=== PATIENT | male | born 1975 | race Caucasian/White ===

== ENCOUNTER 2023-04-21 08:47 | Outpatient (AMB) | payer BC, SELFPAY ==
--- NOTE | 2023-04-21 08:57 | MHC.PC.OV ---
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 Note: Pt is here to est care Allergies pollen extracts [POLLEN] Allergy (Unknown, Unverified 04/21/23 09:18) UNKNOWN DUST Allergy (Unknown, Uncoded 04/21/23 09:18) UNKNOWN Medication List - Last Reconciled 04/21/23 by CHAD Richey amlodipine 5 mg PO DAILY amlodipine 2.5 mg PO DAILY folic acid 1 mg PO DAILY Tobacco use date assessed: 04/21/23 Dental Screening Dental Screen Date: 04/21/23 Did you have a dental visit in the last 12 months?: Yes Did you have a dental problem in the last 6 months where you did not have access to dental care?: No Was dental information given to patient?: Patient has dentist HPI HPI Comments History of Present Illness Details Patient is a 48-year-old male here to establish care. He recently transferred from [facility] and will be sending us his medical records. He states he has the past medical history significant for hypertension which is now controlled, and GERD. He has no surgical history. Patient has had 2 COVID vaccinations but has declined the new booster this year. His declined his influenza immunization. He is due for his 1st colonoscopy, will refer. Patient is a chief complaint of intermittent epigastric discomfort. Patient states it is often worse at night. He used to take omeprazole with good effect, he states he has not tried taking it several months. Denies nausea, vomiting, dizziness, chest pain, shortness a breath, constipation or diarrhea. Patient also states that he has occasional foot pain on the lateral aspect of his right foot. He denies any trauma to the area. He states that at work he is on his fevers entire shift, the pain comes and goes, but overall tends to be getting worse. No swelling or bruising. [facility] Medical History (Updated 04/21/23 @ 10:20 by CHAD Richey) Hypertension Family History Maternal Grandmother Diabetes Social History (Reviewed 04/21/23 @ 09:22 by RAQUEL Richey Housing: Apartment Patient Tobacco Use Status: Former Tobacco user e-Cigarette/Vaping Use: Currently Using (THC) service: Yes ([employer] ) Current occupational status: employed Current occupation: [employer] Current occupational exposures/hazards: No Cognitive needs: No Hearing needs: No Vision needs: No Questionnaire PHQ-9 Over the last 2 weeks, how often have you been bothered by any of the following problems? 1. Little interest or pleasure in doing things: several days 2. Feeling down, depressed, or hopeless: more than half the days 3. Trouble falling or staying asleep, or sleeping too much: not at all 4. Feeling tired or having little energy: several days 5. Poor appetite or overeating: not at all 6. Feeling bad about yourself - or that you are a failure or have let yourself or your family down: not at all 7. Trouble concentrating on things, such as reading the newspaper or watching television: not at all 8. Moving or speaking so slowly that other people could have noticed. Or the opposite - being so fidgety or restless that you have been moving around a lot more than usual: not at all 9. Thoughts that you would be better off or of hurting yourself in some way: not at all Total score: 4 Depression Screening Interpretation: Negative Depression Screening Done: Yes 54522 - PHQ-9 Billing: Yes Source: Developed by Drs. Merlin Cedeno, Elaine Carmona, Greg Eckert and colleagues, with an educational konrad from [employer]. Thrive Questionnaire Date Thrive assessed: 04/21/23 I am a: Patient What is your living situation today?: I have a steady place to live Within the past 12 months, did the food you bought not last and you didn't have the money to get more?: Never true Within the past 12 months, did you worry whether your food would run out before you got money to buy more?: Never true Do you have trouble paying for medicines?: No Do you have trouble getting transportation to medical appointments?: No Do you have trouble paying your heating and electricity bill?: No Do you have trouble taking care of your child, family member or friend?: No Do you have trouble with day-to-day activities such as bathing, preparing meals, shopping, managing finances, etc.?: No Are you currently unemployed and looking for a job?: No Are you interested in more education?: Yes AUDIT C Alcohol Use Questionnaire (AUDIT-C) 1. How often do you have a drink containing alcohol?: 2-4 times a month 2. How many drinks containing alcohol do you have on a typical day when you are drinking?: 1 or 2 3. How often do you have six or more drinks on one occasion?: Never Total Score: 2 JOSSELYN-7 AMB Questionnaire JOSSELYN-7 Date JOSSELYN - 7 assessed: 04/21/23 Feeling nervous, anxious, or on edge: 2 = More than half the days Not being able to stop or control worryin = More than half the days Worrying too much about different things: 2 = More than half the days Trouble relaxin = Not at all Being so restless that it is hard to sit still: 0 = Not at all Becoming easily annoyed or irritable: 1 = Several days Feeling afraid as if something awful might happen: 0 = Not at all Total JOSSELYN-7 score (0-4 normal; 5-9 mild; 10-14 moderate; 15-21 severe): 7 Source: Developed by Drs. Merlin Cedeno, Elaine Carmona, Greg Eckert and colleagues, with an educational konrad from [employer]. JOSSELYN-7 Assessment Billing JOSSELYN-7 Assessment Tool: JOSSELYN-7 Assessment 33456 Review of Systems Const Details: Constitutional : No Weight loss, No Fever, No Chills, No Fatigue, No Malaise ENT/Mouth : No sore throat, No Rhinorrhea. Eyes: No Eye Pain, No Swelling, No Redness Cardiovascular : No Chest Pain, No SOB, No Dyspnea on Exertion, No Orthopnea, No Edema, No Palpitations Respiratory : No Cough, No Sputum, No Wheezing Gastrointestinal : No Nausea, No Vomiting, No Diarrhea, No Constipation, Admits occasional epigastric discomfort,, No Hematochezia, No Melena Genitourinary : No Dysuria, No Urinary Frequency, No Hematuria, Musculoskeletal : No joint pain, No Myalgias, No Joint Swelling Skin : No Skin Lesions, No rash Neuro : No Weakness, No Numbness, No Dizziness, No Headache Psych : No Anxiety/Panic, No Depression Heme/Lymph: No Bruising, No Bleeding,No Lymphadenopathy Endocrine : No Polyuria, No Polydipsia All other systems reviewed and are negative Physical exam (Primary Care) Vital Signs: Last Vital Signs Pulse 84 04/21/23 08:59 BP 128/82 04/21/23 08:59 Pulse Ox 98 04/21/23 08:59 Oxygen Delivery Method Room Air 04/21/23 08:59 Care Plan Goal for BP management: Patient's vital signs reviewed are stable BMI result Body Mass Index 25.4 Tobacco/Smoking Status: Tobacco use Status Tobacco use date assessed 04/21/23 04/21/23 09:06 Patient Tobacco Use Status Former Tobacco user 04/21/23 09:06 e-Cigarette/Vaping Use Currently Using (THC) 04/21/23 09:06 Depression Screening Interpretation: Negative Const Other: Appearance: Alert.? Oriented X3.? No acute distress.? Head: Normocephalic, atraumatic, no step-offs or deformities Eyes: Pupils equal, round and reactive to light.? ENT: Pharynx normal. TM intact and pearly dill. Cerumen in right ear. ? Neck: Normal inspection.? Neck supple.? CVS: Normal heart rate and rhythm.? Pulses normal.? Respiratory: No respiratory distress.? Breath sounds normal.? Abdomen: Soft and nontender.? Skin: Skin warm and dry.? Normal skin color.? Normal skin turgor.? Neuro: Oriented X 3.? No motor deficit.? No sensory deficit. CN 2-12 intact Results Reviewed Results Reviewed: Will call patient with blood test results. Assessment and Plan Assessment & Plan (1) GERD (gastroesophageal reflux disease): Comment: Will prescribe omeprazole. Patient has been instructed on how to take this medication properly in the common side effects. Code(s): K21.9 - Gastro-esophageal reflux disease without esophagitis Qualifiers: Esophagitis presence: esophagitis presence not specified Qualified Code(s): K21.9 - Gastro-esophageal reflux disease without esophagitis (2) Right foot pain: Comment: Will order x-ray of right foot. Patient has been instructed to use insert for his steel toe boots that he wears at work to see if it gives relief. Will follow-up with x-ray results Code(s): M79.671 - Pain in right foot Plan: Take your medications as prescribed. If you were prescribed antibiotics today, it is important that you take your medication to their entirety, do not skip any doses, do not finish them early. Follow-up with your primary care provider this week. Return to the emergency department with new or worsening symptoms. Such as fevers, chills, chest pain, shortness of breath, nausea, vomiting, dizziness, headache, vision changes, lethargy In case of emergency call 911 Plan Patient will follow-up for full physical in 4 months. Orders: Orders Lipid Panel Today E78.5 - Hyperlipidemia, unspecified PSA,Total (Free>4and<10) Today Z12.5 - Encounter for screening for malignant neoplasm of prostate XR foot RT 2V Today M79.671 - Pain in right foot Complete Blood Count Auto Diff Today Z13.0 - Encounter for screening for diseases of the blood and blood-forming organs and certain disorders involving the immune mechanism Comprehensive Met. Panel Today Z91.89 - Other specified personal risk factors, not elsewhere classified TSH reflex Free T4 Today E03.9 - Hypothyroidism, unspecified UA CC w/rflx Micro + Cult Today E86.0 - Dehydration Vitamin D 25-OH (D2 and D3) Today Z13.21 - Encounter for screening for nutritional disorder Medications: New omeprazole 20 mg PO DAILY 60 caps 0RF Coding Level of Care Code New Pt Level 4 (97356) Diagnoses Gastroesophageal reflux disease, unspecified whether esophagitis present K21.9 Esophagitis presence: esophagitis presence not specified Right foot pain M79.671 Additional Codes JOSSELYN-7 Assessment Billing - JOSSELYN-7 Assessment Tool: JOSSELYN-7 Assessment [id number] ([id number]) Time Spent (min) 45
[2023-04-21 08:59] VITALS: BP 128/82; PULSE 84; O2SAT 98; BMI 25.4
== END 2023-04-21 09:54 | disposition home or self-care (01) ==
PROVIDERS: Visit Provider Nurse Practitioner Primary Care
DX: K21.9 Gastro-esophageal reflux disease without esophagitis (principal); M79.671 Pain in right foot
CPT/HCPCS: 99204

== ENCOUNTER 2023-04-21 09:56 | Outpatient (REF) | payer SELFPAY ==
[2023-04-21 13:23] LABS: MANUAL DIFF FLAG NO
[2023-04-21 13:34] LABS: Basophils Percent Auto 0.6 % (0-2); Eosinophils Absolute Auto 0.1 X10*3/uL (0.0-0.4); Eosinophils Percent Auto 1.2 % (0-4); Hematocrit 43.9 % (42.0-52.0); Hemoglobin 15.1 g/dl (14.0-18.0); Imm Gran Abs Auto 0.01 X10*3/uL (0.00-0.03); Imm Gran Pct Auto 0.2 % (0.0-0.4); Lymphocytes Absolute Auto 1.5 X10*3/uL (1.2-4.9); Lymphocytes Percent Auto 29.5 % (20-40); Mean Corpuscular HGB Conc 34.4 g/dl (31.0-36.0); Mean Corpuscular Hemoglobin 31.5 pg (27.0-33.0); Mean Corpuscular Volume 91.6 fL (80.0-98.0); Mean Platelet Volume 9.8 fL (9.4-12.4); Monocytes Absolute Auto 0.5 X10*3/uL (0.1-1.2); Neutrophils Percent Auto 58.5 % (45-73); Platelet Count 256 X10*3/uL (160-400); Red Blood Count 4.79 X10*6/uL (4.60-5.80); Red Cell Distribution Width 12.5 % (11.0-16.0); White Blood Count 5.2 X10*3/uL (4.8-10.8)
[2023-04-21 13:57] LABS: Appearance Urine Clear; Color Urine Yellow; Glucose Urine UA Negative (Negative); Leukocyte Esterase Urine Negative (Negative); Nitrite Urine Negative (Negative); PH 5.5 (5.0-9.0); Urine Blood Negative (Negative); Urine Ketones Trace mg/dL (Negative); Urine Protein Negative (Neg-Trace)
[2023-04-21 14:02] LABS: Alanine Aminotransferase 34 U/L (0-40); Albumin Level 4.8 g/dL (3.5-5.0); Alkaline Phosphatase 44 U/L (39-117); Anion Gap 13 (12-20); Aspartate Amino Transferase 27 U/L (5-37); Bilirubin Total 2.5 mg/dL (0.0-1.0); Blood Urea Nitrogen 14 mg/dL (9-16); Calcium 9.7 mg/dL (8.4-10.2); Carbon Dioxide 24 mmol/L (22-29); Chloride 107 mmol/L (96-108); Cholesterol 191 mg/dL (<200); Estimated Glomerular Filt Rate > 60; Glucose Random 110 mg/dL (60-115); HDL Cholesterol 49 mg/dL (>40); LDL Cholesterol Calculated 125 mg/dL (<100); Potassium 3.3 mmol/L (3.3-5.1); Sodium 141 mmol/L (135-145); Total Protein 8.2 g/dL (6.5-8.0); Triglycerides 85 mg/dL (<150)
[2023-04-21 14:25] LABS: TSH reflex Free T4 0.99 uIU/mL (0.32-4.0)
[2023-04-25 16:28] LABS: Vitamin D 25-OH, D2 <4 ng/mL; Vitamin D 25-OH, D3 40 ng/mL; Vitamin D 25-OH, Total 40 ng/mL (30-100)
== END 2023-04-21 09:57 | disposition home or self-care (01) ==
LOC: HO.HMGCLDS 09:56
PROVIDERS: PCP Nurse Practitioner Primary Care; Visit Provider Nurse Practitioner Primary Care
DX: Z13.0 Encounter for screening for diseases of the blood and blood-forming organs and certain disorders involving the immune mechanism (principal); Z12.5 Encounter for screening for malignant neoplasm of prostate; Z13.21 Encounter for screening for nutritional disorder; Z91.89 Other specified personal risk factors, not elsewhere classified; E03.9 Hypothyroidism, unspecified; E86.0 Dehydration; E78.5 Hyperlipidemia, unspecified
CPT/HCPCS: 36415; 80053; 80061; 81003; 82306; 84153; 84443; 85025

== ENCOUNTER 2023-06-08 07:39 | Outpatient (AMB) | payer SELFPAY ==
--- NOTE | 2023-06-08 07:51 | MHC.OFFVIS ---
Intake Vital Signs 06/08/23 07:52 Height 6 ft Weight 189 lb 9.561 oz BMI 25.7 BP 145/96 H Blood Pressure Location Lt brachial Position Sitting Pulse 86 Intake Visit Reasons: Colonoscopy Screening Intake Note: Wendie presents in the office as a colonoscopy screening. CC: He states that he is not having any concerns! Just due for a colonoscopy. 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 He is referred by Mor Alegre of [facility] primary care. PMX Hypertension GERD Right foot pain Allergic rhinitis * SURGICAL HISTORY Pt denies * ALLERGIES: NKDA * [facility] LABS: Laboratory Tests 04/21/23 10:00 WBC 5.2 Hgb 15.1 Hct 43.9 Plt Count 256 Estimated GFR > 60 Total Bilirubin 2.5 H AST 27 ALT 34 Alkaline Phosphata se 44 TSH 0.99 TODAY'S VISIT This is his first colonoscopy. His GERD is well controlled if he gets his medicines, apparently there were some kind of miscommunication with his primary care provider. He denies any bowel problems. He is naive to anesthesia and sedation. He denies any cardiac or respiratory problems. No ID problems NO FHX of crc or polyps. [facility] Medical History Hypertension Family History Maternal Grandmother Diabetes Social History Housing: Apartment Patient Tobacco Use Status: Former Tobacco user e-Cigarette/Vaping Use: Currently Using (THC) service: Yes ([employer] ) Current occupational status: employed Current occupation: [employer] Current occupational exposures/hazards: No Cognitive needs: No Hearing needs: No Vision needs: No Review of Systems Const Denies fatigue, Denies fever(s), Denies night sweats, Denies poor appetite and Denies weight loss ENT Reports Normal hearing present, Denies dental pain, Denies dysphagia, Denies hearing loss, Denies mouth pain, Denies odynophagia, Denies throat swelling, Denies tongue swelling and Reports other (Dentition adequate) Card Reports no additional complaints Resp Reports no additional complaints GI Details: Denies abdominal pain, Denies melena, Denies bloating, Denies hematochezia, Denies constipation, Denies GI cramping, Denies dysphagia, Denies excessive flatus, Denies early satiety, Denies heartburn, Denies diarrhea, Denies nausea, Denies odynophagia, Denies vomiting and Denies hematemesis Skin/Breast Denies pruritus, Denies lesions, Denies rash and Denies jaundice Neuro Reports Normal hearing present and Denies Abnormal speech present Endo Denies fatigue Aller/Immun Denies throat swelling and Denies tongue swelling Physical Exam Vital Signs: Last Vital Signs Pulse 86 06/08/23 07:52 BP 145/96 H 06/08/23 07:52 BMI result Body Mass Index 25.7 Const General: cooperative, no acute distress, well developed and well groomed Nutritional Appearance: average body habitus and well nourished Orientation/consciousness: oriented to person, oriented to place and oriented to time Limitations: No language barrier HEENT Head: Yes normocephalic and Yes atraumatic Eyes General: appearance normal, both eyes and all related structures Pupils: Equal, round and reactive pupils present Neck Neck: Yes normal visual inspection and Yes no lymphadenopathy Thyroid: Thyroid normal Resp Effort & Inspection: normal respiratory effort and able to speak in complete sentences Auscultation: clear to auscultation bilaterally Cardio Rate: regular rate Rhythm: regular rhythm Heart sounds: Normal, physiologic split S2 sound present Peripheral pulses: radial pulses present and posterior tibial pulses present GI Inspection: No distended and No Abdominal panniculus present Palpation (GI): Soft to palpation, nontender, no guarding, not rigid and No hepatosplenomegaly present Percussion: Yes normal to percussion Auscultation: normal bowel sounds Rectal Exam - Male: Yes deferred Skin General skin exam: no rashes or lesions noted, turgor normal, skin not dry, no jaundice, No spider nevi and no striae Rashes: no rashes Nails: normal Neuro General: oriented to person, oriented to place and oriented to time Cranial nerves: Yes Equal, round and reactive pupils present and Yes Normal hearing present Speech: No Abnormal speech present Extrem General: Yes normal to inspection, No clubbing, No cyanosis and No edema Psych Appearance: grossly normal and well kempt Mental Status: mental status grossly normal Speech and movement: Normal speech and movement present Affect: normal affect Attitude: cooperative Thought process: Normal thought process present and not confabulating Thought content: Normal thought content present Insight: Fair insight present (Psych) Judgement: Fair judgement present (Psych) Assessment & Plan Assessment & Plan (1) Pre-op examination: Code(s): Z01.818 - Encounter for other preprocedural examination Plan This is his first colonoscopy. His GERD is well controlled if he gets his medicines, apparently there were some kind of miscommunication with his primary care provider. He denies any bowel problems. He is naive to anesthesia and sedation. He denies any cardiac or respiratory problems. No ID problems NO FHX of crc or polyps. Orders: Orders Colonoscopy - GI Use Only Today Z01.818 - Encounter for other preprocedural examination Medications: New peg 3350-electrolytes 236-22.74-6.74 -5.86 gram (Golytely) until fecal effluent is clear; do not exceed a total volume of 2,000 mL 240 mL PO Q10M 1 day 4,000 mL 0RF Z12.11 - Encounter for screening for malignant neoplasm of colon bisacodyl (Dulcolax (bisacodyl)) 10 mg (2 x 5 mg) PO BEDTIME 2 days 4 tabs 0RF Refilled omeprazole 20 mg PO DAILY 60 caps 6RF Coding Level of Care Code New Pt Level 3 (23367) Diagnoses Pre-op examination Z01.818
[2023-06-08 07:52] VITALS: BP 145/96; PULSE 86; BMI 25.7
== END 2023-06-08 08:34 | disposition home or self-care (01) ==
PROVIDERS: PCP Nurse Practitioner Primary Care; Visit Provider Nurse Practitioner
DX: Z01.818 Encounter for other preprocedural examination (principal); Z12.11 Encounter for screening for malignant neoplasm of colon
CPT/HCPCS: S0285

== ENCOUNTER → 2023-06-08 07:39 | Outpatient (BNVA) | payer SELFPAY | PROVIDERS: PCP Nurse Practitioner Primary Care; Visit Provider Nurse Practitioner ==

== ENCOUNTER 2023-08-23 08:45 | Outpatient (AMB) | payer BC, SELFPAY ==
[2023-08-23 08:49] VITALS: BP 136/92; PULSE 85; O2SAT 98; BMI 25.0
--- NOTE | 2023-08-23 08:49 | A.OFFPC_ITS ---
Vital Signs 08/23/23 08:49 Height 6 ft Weight 184 lb BMI 25.0 BP 136/92 H Blood Pressure Location Rt brachial Position Sitting Pulse 85 Pulse Source Pulse Oximeter Pulse Oximetry (%) 98 Oxygen Delivery Method Room Air Intake Visit Reasons: 4 month fu Intake Note: Pt is here today for his 4 Month follow up Allergies pollen extracts [POLLEN] Allergy (Unknown, Verified 08/23/23 09:08) UNKNOWN DUST Allergy (Unknown, Uncoded 08/23/23 09:08) UNKNOWN Medication List - Last Reconciled 08/23/23 by CHAD Richey amlodipine 10 mg PO DAILY folic acid 1 mg PO DAILY omeprazole 20 mg PO DAILY Tobacco use date assessed: 08/23/23 Dental Screening Dental Screen Date: 08/23/23 Did you have a dental visit in the last 12 months?: Yes Did you have a dental problem in the last 6 months where you did not have access to dental care?: No Was dental information given to patient?: Patient has dentist HPI HPI Comments History of Present Illness Details Patient is a 48-year-old male in today for follow-up with hypertension. Had been taking 7.5 mg amlodipine at home, his at home records indicate that he is still mildly hypertensive, with value similar to today's appointment. Patient will be titrated up to 10 mg p.o. of amlodipine. Patient denies episodes of chest pain, dizziness, numbness, shortness a breath, and leg edema. Patient does have complaint of intermittent right upper quadrant pain. States that the pain is dull and can come and go regardless of food intake. Denies diarrhea or constipation. Patient states he has had this problem for the past several years. Reports 1-2 beers per week. Patient's CT scan from previous provider demonstrated diffuse steatosis. Patient educated on proper diet. [facility] refer [facility] Medical History (Updated 08/23/23 @ 09:41 by CHAD Richey) Hypertension Family History Maternal Grandmother Diabetes Social History Housing: Apartment Patient Tobacco Use Status: Former Tobacco user e-Cigarette/Vaping Use: Currently Using (THC) service: Yes ([employer] ) Current occupational status: employed Current occupation: [employer] Current occupational exposures/hazards: No Cognitive needs: No Hearing needs: No Vision needs: No Questionnaire Thrive Questionnaire Date Thrive assessed: 04/21/23 AUDIT C Alcohol Use Questionnaire (AUDIT-C) 1. How often do you have a drink containing alcohol?: 2-4 times a month 2. How many drinks containing alcohol do you have on a typical day when you are drinking?: 1 or 2 3. How often do you have six or more drinks on one occasion?: Never Total Score: 2 Score Reviewed/Action Taken: Yes JOSSELYN-7 AMB Questionnaire JOSSELYN-7 Date JOSSELYN - 7 assessed: 04/21/23 Source: Developed by Drs. Merlin Cedeno, Elaine Carmona, Greg Eckert and colleagues, with an educational konrad from [employer]. Review of Systems Const All systems reviewed & are unremarkable except as noted in HPI and below Physical exam (Primary Care) Vital Signs: Last Vital Signs Pulse 85 08/23/23 08:49 BP 136/92 H 08/23/23 08:49 Pulse Ox 98 08/23/23 08:49 Oxygen Delivery Method Room Air 08/23/23 08:49 Care Plan Goal for BP management: Patient titrated up to 10 mg p.o. of amlodipine. Next steps: Take records at home. BMI result Body Mass Index 25.0 Tobacco/Smoking Status: Tobacco use Status Tobacco use date assessed 08/23/23 08/23/23 08:59 Patient Tobacco Use Status Former Tobacco user 08/23/23 08:59 e-Cigarette/Vaping Use Currently Using (THC) 08/23/23 08:59 Thrive Assessment: Date of Thrive Assessment Date Thrive assessed 04/21/23 08/23/23 08:59 Const Other: Appearance: Alert.? Oriented X3.? No acute distress.? Head: Normocephalic, atraumatic. CVS: Normal heart rate and rhythm.? Pulses normal.? Respiratory: No respiratory distress.? Breath sounds normal.? Abdomen: Soft and nontender.? Skin: Skin warm and dry. Small red vesicles to lateral aspect of mid foot bilaterally. No scaling or discharge. Extremities: No lower extremity edema.? Neuro: Oriented X 3.? Assessment and Plan Assessment & Plan (1) RUQ pain: Comment: Patient had prior CT scan to [facility] [address] which demonstrated diffuse hepatic steatosis. Will refer to GI. Code(s): R10.11 - Right upper quadrant pain (2) Tinea pedis: Comment: Will prescribe nystatin cream to be taken as directed. Patient has been educated to keep his feet dry, wear appropriate footwear and sock where Code(s): B35.3 - Tinea pedis Qualifiers: Laterality: bilateral Qualified Code(s): B35.3 - Tinea pedis (3) Hypertension: Comment: Amlodipine titrated up to 10 mg p.o. daily. Code(s): I10 - Essential (primary) hypertension Qualifiers: Hypertension type: primary hypertension Qualified Code(s): I10 - Essential (primary) hypertension Plan: Take your medications as prescribed. If you were prescribed antibiotics today, it is important that you take your medication to their entirety, do not Follow-up with your primary care provider this week. Return to the emergency department with new or worsening symptoms. Such as fevers, chills, chest pain, shortness of breath, nausea, vomiting, dizziness, headache, vision changes, lethargy In case of emergency call 911 Plan Patient will follow-up physical exam in 2 months Orders: Orders Comprehensive Met. Panel Today Z91.89 - Other specified personal risk factors, not elsewhere classified Complete Blood Count Auto Diff Today Z13.0 - Encounter for screening for diseases of the blood and blood-forming organs and certain disorders involving the immune mechanism Referrals Gastroenterology Referral R10.11 - Right upper quadrant pain Medications: New amlodipine 10 mg PO DAILY 90 tabs 0RF nystatin 1 appl topical DAILY 15 grams 0RF Discontinued amlodipine Discontinued Reason: Doctor's Order 5 mg PO DAILY 90 tabs 1RF Coding Level of Care Code Est Pt Level 4 (61880) Diagnoses RUQ pain R10.11 Tinea pedis of both feet B35.3 Laterality: bilateral Primary hypertension I10 Hypertension type: primary hypertension Time Spent (min) 32
== END 2023-08-23 09:29 | disposition home or self-care (01) ==
PROVIDERS: Visit Provider Nurse Practitioner Primary Care
DX: R10.11 Right upper quadrant pain (principal); B35.3 Tinea pedis; I10 Essential (primary) hypertension
CPT/HCPCS: 99214

== ENCOUNTER 2023-09-03 13:52 | Outpatient (REF) | payer BC, SELFPAY ==
--- NOTE | ~2023-09-03 | XR_ITS ---
EXAMINATION: XR FOOT, RIGHT CLINICAL INFORMATION: Pain in right foot. COMPARISON: None available. TECHNIQUE: AP, lateral, and oblique views of the right foot. FINDINGS: Mild spurring along the dorsal aspect of the calcaneus. Moderate degenerative changes with joint space narrowing and hypertrophic change in the first metatarsophalangeal joint. Mild degenerative changes in the first tarsometatarsal joint with hypertrophic change. XR/XR foot RT min 3V IMPRESSION: 1. Moderate degenerative changes first metatarsophalangeal joint. 2. Mild degenerative changes first tarsometatarsal joint. 3. Mild spurring along the dorsal aspect of the calcaneus. 4. Recommend follow-up imaging in 10-14 days if fracture is suspected.
[2023-09-03 16:01] LABS: MANUAL DIFF FLAG NO
[2023-09-03 16:30] LABS: Basophils Percent Auto 0.6 % (0-2); Eosinophils Absolute Auto 0.1 X10*3/uL (0.0-0.4); Eosinophils Percent Auto 1.3 % (0-4); Hematocrit 45.1 % (42.0-52.0); Imm Gran Abs Auto 0.01 X10*3/uL (0.00-0.03); Imm Gran Pct Auto 0.2 % (0.0-0.4); Lymphocytes Absolute Auto 1.6 X10*3/uL (1.2-4.9); Lymphocytes Percent Auto 32.9 % (20-40); Mean Corpuscular HGB Conc 35.5 g/dl (31.0-36.0); Mean Corpuscular Hemoglobin 32.5 pg (27.0-33.0); Mean Corpuscular Volume 91.5 fL (80.0-98.0); Mean Platelet Volume 9.6 fL (9.4-12.4); Monocytes Absolute Auto 0.5 X10*3/uL (0.1-1.2); Monocytes Percent Auto 9.8 % (2-11); Neutrophils Absolute Auto 2.6 x10*3/uL (2.0-8.3); Neutrophils Percent Auto 55.2 % (45-73); Platelet Count 263 X10*3/uL (160-400); Red Blood Count 4.93 X10*6/uL (4.60-5.80); Red Cell Distribution Width 12.4 % (11.0-16.0); White Blood Count 4.7 X10*3/uL (4.8-10.8)
[2023-09-03 16:38] LABS: Alanine Aminotransferase 31 U/L (0-40); Albumin Level 4.8 g/dL (3.5-5.0); Alkaline Phosphatase 44 U/L (39-117); Anion Gap 11 (12-20); Aspartate Amino Transferase 27 U/L (5-37); Bilirubin Total 2.2 mg/dL (0.0-1.0); Blood Urea Nitrogen 10 mg/dL (9-16); Calcium 9.7 mg/dL (8.4-10.2); Carbon Dioxide 26 mmol/L (22-29); Chloride 106 mmol/L (96-108); Estimated Glomerular Filt Rate > 60; Glucose Random 112 mg/dL (60-115); Potassium 3.7 mmol/L (3.3-5.1); Sodium 139 mmol/L (135-145); Total Protein 8.3 g/dL (6.5-8.0)
== END 2023-09-03 13:53 | disposition home or self-care (01) ==
LOC: HO.HMGCX 13:52
PROVIDERS: PCP Nurse Practitioner Primary Care; Visit Provider Nurse Practitioner Primary Care
DX: Z13.0 Encounter for screening for diseases of the blood and blood-forming organs and certain disorders involving the immune mechanism (principal); Z91.89 Other specified personal risk factors, not elsewhere classified
CPT/HCPCS: 36415; 73630; 80053; 85025

== ENCOUNTER 2023-09-14 08:04 | Day surgery (SDC) | payer BC, SELFPAY ==
--- NOTE | 2023-09-10 14:39 | P.CONAN_ITS ---
Documented by User: Arleen Bowen NP 09/10/23 14:40 HPI - Anesthesia Eval Consult details Narrative: 48yo M for Colonoscopy PMFSH Active Problems Active Problems: All Active Problems Hypertension (Acute) Tinea pedis (Acute) RUQ pain (Acute) Pre-op examination (Acute) Right foot pain (Acute) GERD (gastroesophageal reflux disease) (Acute) Past Medical History Medical History Hypertension Family History Family History Maternal Grandmother Diabetes Social History Social History Housing: Apartment Patient Tobacco Use Status: Former Tobacco user e-Cigarette/Vaping Use: Currently Using (THC) Use of substances other than those prescribed or required for medical reasons: Yes Substance Use Type Other:: THC vape form daily Substance Use Frequency: Daily Are you DNR?: No Advance Directives: No Advance Directives Information Provided: Yes service: Yes ([employer] ) Current occupational status: employed Current occupation: [employer] Current occupational exposures/hazards: No Cognitive needs: No Hearing needs: No Vision needs: No Meds Allergies Allergy/AdvReac Type Severity Reaction Status Date / Time pollen extracts [POLLEN] Allergy Unknown UNKNOWN Verified 09/14/23 09:30 ibuprofen AdvReac Itching Verified 09/14/23 09:31 DUST Allergy Unknown UNKNOWN Uncoded 09/14/23 09:30 Home Medications ?Medication ?Instructions ?Recorded ?Confirmed ?Last Taken ?Type folic acid 1 mg tablet 1 mg PO DAILY 04/21/23 09/14/23 09/14/23 06:30 History Assessment and Plan Assessment Anesthesia Assessment: Chart Reviewed Documented by User: Bree Duke MD 09/14/23 10:00 PMFSH Past Medical History Medical History Hypertension Family History Family History Maternal Grandmother Diabetes Surgical History History of Problems with Anesthesia: No Social History Social History Housing: Apartment Patient Tobacco Use Status: Former Tobacco user e-Cigarette/Vaping Use: Currently Using (THC) Use of substances other than those prescribed or required for medical reasons: Yes Substance Use Type Other:: THC vape form daily Substance Use Frequency: Daily Are you DNR?: No Advance Directives: No Advance Directives Information Provided: Yes service: Yes ([employer] ) Current occupational status: employed Current occupation: [employer] Current occupational exposures/hazards: No Cognitive needs: No Hearing needs: No Vision needs: No Meds Allergies Allergy/AdvReac Type Severity Reaction Status Date / Time pollen extracts [POLLEN] Allergy Unknown UNKNOWN Verified 09/14/23 09:30 ibuprofen AdvReac Itching Verified 09/14/23 09:31 DUST Allergy Unknown UNKNOWN Uncoded 09/14/23 09:30 Home Medications ?Medication ?Instructions ?Recorded ?Confirmed ?Last Taken ?Type folic acid 1 mg tablet 1 mg PO DAILY 04/21/23 09/14/23 09/14/23 06:30 History Exam Airway Mallampati Class: II TM Dist: >3cm Neck ROM: Full Loose/Missing/Broken Teeth: No Heart: RRR Lungs: CTA Assessment and Plan Assessment Anesthesia Assessment: Anesthesia Plan Discussed Final Anesthetic Review History of Problems with Anesthesia: No NPO: Yes ASA Class: II Final Preanesthetic Review: Meds/Allgs Chart Reviewed, Consent Obtained/Reviewed and Anes Risks/Benef Reviewed Patient Risk: Low Procedure Risk: Low Anesthetic Plan Anesthetic Plan: MAC: Disposition: Standard PACU
[2023-09-14 09:19] VITALS: BMI 24.3
--- NOTE | 2023-09-14 09:20 | MHC.SHP ---
Pre-Procedural Eval Section A - 24 Hr Update-Section A only Date of Service: 09/14/23 Section B - Complete if H&P > 30 days Chief Complaint: Encounter for screening for malignant neoplasm of Details of Present Illness: PMX Hypertension GERD Right foot pain Allergic rhinitis History of Previous Operations: No relevant previous surgery Allergies: Allergies Allergy/AdvReac Type Severity Reaction Status Date / Time pollen extracts [POLLEN] Allergy Unknown UNKNOWN Verified 08/23/23 09:08 DUST Allergy Unknown UNKNOWN Uncoded 08/23/23 09:08 Review of Systems Review of Systems Comment: 10 point ROS negative Exam Exam Comment: Gen appear: No acute distress HEENT: no icterus Chest: No overt resp distress Abd: soft, nontender, nondistended Psych: Stable affect, answering questions appropriately Neuro: A/Ox3 noted to move all extremities spontaneously Ext: no peripheral edema Plan Diagnosis/Plan: Unchanged I have reviewed the history and physical and performed a pertinent physical examination on my patient. No changes have occurred unless specified. Time Spent With Patient Time: Total time managing care of this patient today ____ minutes.
[2023-09-14 09:34] VITALS: BP 122/89; PULSE 80; RESP 16; TEMP 36.9; O2SAT 98
[2023-09-14] MEDS: Lactated Ringers 1,000 ML 100 ML IVCONT (09:43)
--- NOTE | 2023-09-14 09:56 | P.OPN-COLO_ITS ---
Colonoscopy Operative Note Operative Note Date of Service: 09/14/23 Narrative: Procedure: Colonoscopy Indication: Screening Endoscopist: Eliza Villaseñor MD Anesthesia Provider: Dr Taylor Duke Anesthesia type: MAC Instrument: Olympus [id number]-[id number] Consent: Indication, risks vs benefits, and alternatives were discussed with the patient who gave written informed consent to proceed. EKG, pulse, pulse oximetry and blood pressure were monitored throughout the procedure. Please see anesthesia flowsheet. Procedure: The patient was brought to the procedure room and placed in the left lateral decubitus position. IV medications were administered by the anesthesia provider in attendance. A digital rectal exam was performed which was normal. A distal attachment cap was affixed to the tip of the colonoscope which was then inserted through the anus and advanced through the colon to the cecum at 75 cm, and terminal ileum. Appendiceal orifice and ileocecal valve were identified. Mucosa was carefully examined under high definition white light as the instrument was slowly withdrawn in a retrograde panoramic fashion. Retroflexion was performed in ascending colon and rectum. The procedure was not difficult. There were no immediate obvious complications. The quality of the prep was BBPS: 2+2+3 = adequate Withdrawal time 6 minutes. Limitations: No limitations. Findings: Mucosa: Normal to cecum and terminal ileum. Protruding lesions: * Small internal hemorrhoids without stigmata of recent bleeding. Impression: 1. Normal colon and terminal ileum mucosa 2. Small internal hemorrhoids Recommendations: - repeat colonoscopy for asymptomatic colorectal cancer screening recommended in 10 years
[2023-09-14 10:24] VITALS: BP 103/67; PULSE 69; RESP 18; TEMP 36.5; O2SAT 98
[2023-09-14 10:39] VITALS: BP 125/85; PULSE 72; RESP 18; TEMP 36.5; O2SAT 100
== END 2023-09-14 11:09 | disposition home or self-care (01) ==
PROVIDERS: PCP Nurse Practitioner Primary Care; Visit Provider Internal Medicine
PROC: 0DJD8ZZ Inspection of Lower Intestinal Tract, Via Natural or Artificial Opening Endoscopic (ICD-10-PCS; CPT 45378; principal; 2023-09-14 09:40)
DX: Z12.11 Encounter for screening for malignant neoplasm of colon (principal); K64.8 Other hemorrhoids; I10 Essential (primary) hypertension
CPT/HCPCS: 45378; J2704

== ENCOUNTER → 2023-09-14 08:04 | Outpatient (BNV) | payer BC, SELFPAY | PROVIDERS: PCP Nurse Practitioner Primary Care; Visit Provider Internal Medicine | DX: Z12.11 Encounter for screening for malignant neoplasm of colon (principal); K64.0 First degree hemorrhoids | CPT/HCPCS: 45378 ==

== ENCOUNTER 2023-09-28 08:01 | Outpatient (AMB) | payer BC, SELFPAY ==
[2023-09-28 08:09] VITALS: BP 141/89; PULSE 68; BMI 24.8
--- NOTE | 2023-09-28 08:09 | A.OFFVIS_ITS ---
Vital Signs 09/28/23 08:09 Height 6 ft Weight 182 lb 15.739 oz BMI 24.8 BP 141/89 H Blood Pressure Location Lt brachial Position Sitting Pulse 68 Intake Visit Reasons: s/p colon Intake Note: Wendie presents in the office as a follow up colonoscopy. CC: Just here for the results to his procedure. No concerns. Heel Boom Operator Required: No Allergies pollen extracts [POLLEN] Allergy (Unknown, Verified 09/28/23 08:10) UNKNOWN ibuprofen Adverse Reaction (Verified 09/28/23 08:10) Itching DUST Allergy (Unknown, Uncoded 09/28/23 08:10) UNKNOWN HPI HPI s/p colon: Details: Assessment & Plan (1) Pre-op examination: Code(s): Z01.818 - Encounter for other preprocedural examination Plan This is his first colonoscopy. His GERD is well controlled if he gets his medicines, apparently there were some kind of miscommunication with his primary care provider. He denies any bowel problems. He is naive to anesthesia and sedation. He denies any cardiac or respiratory problems. No ID problems NO FHX of crc or polyps. Orders: Orders Colonoscopy - GI Use Only Today Z01.818 - Encounter for other preprocedural examination Medications: New peg 3350-electrolytes 236-22.74-6.74 -5.86 gram (Golytely) until fecal effluent is clear; do not exceed a total volume of 2,000 mL 240 mL PO Q10M 1 day 4,000 mL 0RF Z12.11 - Encounter for screening for malignant neoplasm of colon bisacodyl (Dulcolax (bisacodyl)) 10 mg (2 x 5 mg) PO BEDTIME 2 days 4 tabs 0RF Refilled omeprazole 20 mg PO DAILY 60 caps 6RF COLONOSCOPY 09/14/23 1 Findings: Mucosa: Normal to cecum and terminal ileum. Protruding lesions: * Small internal hemorrhoids without stigmata of recent bleeding. Impression: 1. Normal colon and terminal ileum mucosa 2. Small internal hemorrhoids Recommendations: - repeat colonoscopy for asymptomatic colorectal cancer screening recommended in 10 years TODAY'S VISIT He is agreeable to a 10 year recall. The procedure was well tolerated. The results were explained and the patient is agreeable to the follow-up interval as stated. The bowel pattern has returned to normal. Education was provided to tell any 1st degree relatives about their findings to be sure that they are screened by age 45. Educated that they will be put on a recall list when it is time for their repeat scope but should they move out of state or away from the hospital they will need to remember along with their primary to repeat the procedure in a timely fashion to avoid any adverse complications. He tells me he has having a problem that his primary said ?ask July about it. ? He is having intermittent RUQ pressure that occurs about once a month. He can not tie it to foods eaten or BM specifically - but he has not given it much thought. He has chronic low back pain. No N/V, no GERD, no general bloating. His HB has an unusual manifestation of burning under right ribs that resolved with antacid medications. Up He says he had an imaging study at [facility] showing some hepatic steatosis. He has not overweight any only drinks a beer about once a month at most. No FH GB disease. I ask him to try to think about what he is eaten a what he has done throughout the day when he has the problem so we can get a better idea of what might be causing it. For example is at bowel gas? Is it when he eats particular type of food? Or is it when he performs a particular exercise? Will get US and thoracic back xray. ROV after US. [facility] Medical History (Updated 09/28/23 @ 08:26 by LUCRECIA Turner) Hypertension Surgical History (Updated 09/28/23 @ 08:17 by LUCRECIA Turner) History of esophagogastroduodenoscopy (EGD) Hx of colonoscopy Family History Maternal Grandmother Diabetes Social History Housing: Apartment Patient Tobacco Use Status: Former Tobacco user e-Cigarette/Vaping Use: Currently Using (THC) service: Yes ([employer] ) Current occupational status: employed Current occupation: [employer] Current occupational exposures/hazards: No Cognitive needs: No Hearing needs: No Vision needs: No Review of Systems Const Denies fatigue, Denies fever(s), Denies night sweats, Denies poor appetite and Denies weight loss ENT Reports Normal hearing present, Denies dental pain, Denies dysphagia, Denies hearing loss, Denies mouth pain, Denies odynophagia, Denies throat swelling, Denies tongue swelling and Reports other (Dentition adequate) Card Reports no additional complaints Resp Reports no additional complaints GI Details: Reports abdominal pain, Denies melena, Denies bloating, Denies hematochezia, Denies constipation, Denies GI cramping, Denies dysphagia, Denies excessive flatus, Denies early satiety, Denies heartburn, Denies diarrhea, Denies nausea, Denies odynophagia, Denies vomiting and Denies hematemesis Skin/Breast Denies pruritus, Denies lesions, Denies rash and Denies jaundice Neuro Reports Normal hearing present and Denies Abnormal speech present Endo Denies fatigue Aller/Immun Denies throat swelling and Denies tongue swelling Physical Exam Vital Signs: Last Vital Signs Pulse 68 09/28/23 08:09 BP 141/89 H 09/28/23 08:09 BMI result Body Mass Index 24.8 Const General: cooperative, no acute distress, well developed and well groomed Nutritional Appearance: average body habitus and well nourished Orientation/consciousness: oriented to person, oriented to place and oriented to time Limitations: No language barrier HEENT Head: Yes normocephalic and Yes atraumatic Eyes General: appearance normal, both eyes and all related structures Pupils: Equal, round and reactive pupils present Neck Neck: Yes normal visual inspection and Yes no lymphadenopathy Thyroid: Thyroid normal Resp Effort & Inspection: normal respiratory effort and able to speak in complete sentences Auscultation: clear to auscultation bilaterally Cardio Rate: regular rate Rhythm: regular rhythm Heart sounds: Normal, physiologic split S2 sound present Peripheral pulses: radial pulses present and posterior tibial pulses present GI Inspection: No distended and No Abdominal panniculus present Palpation (GI): Soft to palpation, nontender, no guarding, not rigid and No hepatosplenomegaly present Percussion: Yes normal to percussion Auscultation: normal bowel sounds Rectal Exam - Male: Yes deferred Skin General skin exam: no rashes or lesions noted, turgor normal, skin not dry, no jaundice, No spider nevi and no striae Rashes: no rashes Nails: normal Neuro General: oriented to person, oriented to place and oriented to time Cranial nerves: Yes Equal, round and reactive pupils present and Yes Normal hearing present Speech: No Abnormal speech present Extrem General: Yes normal to inspection, No clubbing, No cyanosis and No edema Psych Appearance: grossly normal and well kempt Mental Status: mental status grossly normal Speech and movement: Normal speech and movement present Affect: normal affect Attitude: cooperative Thought process: Normal thought process present and not confabulating Thought content: Normal thought content present Insight: Fair insight present (Psych) and Limited insight present (Psych) Judgement: Fair judgement present (Psych) and Limited judgement present (Psych) Results Reviewed Results Reviewed: Laboratory Tests 04/21/23 09/03/23 10:00 13:57 WBC 4.7 L Hgb 16.0 Hct 45.1 Plt Count 263 Estimated GFR > 60 Total Bilirubin 2.2 H AST 27 ALT 31 Alkaline Phosphatase 44 TSH 0.99 COLONOSCOPY 09/14/23 1 Findings: Mucosa: Normal to cecum and terminal ileum. Protruding lesions: * Small internal hemorrhoids without stigmata of recent bleeding. Impression: 1. Normal colon and terminal ileum mucosa 2. Small internal hemorrhoids Recommendations: - repeat colonoscopy for asymptomatic colorectal cancer screening recommended in 10 years Assessment & Plan Assessment & Plan (1) Hx of colonoscopy: Comment: -2023 scope= normal exam repeat in 10 years Code(s): Z98.890 - Other specified postprocedural states Category: Surgical (2) RUQ pain: Code(s): R10.11 - Right upper quadrant pain Category: Medical Plan He is agreeable to a 10 year recall. The procedure was well tolerated. The results were explained and the patient is agreeable to the follow-up interval as stated. The bowel pattern has returned to normal. Education was provided to tell any 1st degree relatives about their findings to be sure that they are screened by age 45. Educated that they will be put on a recall list when it is time for their repeat scope but should they move out of state or away from the hospital they will need to remember along with their primary to repeat the procedure in a timely fashion to avoid any adverse complications. He tells me he has having a problem that his primary said ?ask July about it. ? He is having intermittent RUQ pressure that occurs about once a month. He can not tie it to foods eaten or BM specifically - but he has not given it much thought. He has chronic low back pain. No N/V, no GERD, no general bloating. His HB has an unusual manifestation of burning under right ribs that resolved with antacid medications. Up He says he had an imaging study at [facility] showing some hepatic steatosis. He has not overweight any only drinks a beer about once a month at most. No FH GB disease. I ask him to try to think about what he is eaten a what he has done throughout the day when he has the problem so we can get a better idea of what might be causing it. For example is at bowel gas? Is it when he eats particular type of food? Or is it when he performs a particular exercise? Will get US and thoracic back xray. ROV after US. Orders: Orders XR thoracic spine 2V Today R10.11 - Right upper quadrant pain US abdomen complete Today R10.11 - Right upper quadrant pain Coding Level of Care Code Est Pt Level 4 (09149) Diagnoses Hx of colonoscopy Z98.890 RUQ pain R10.11
== END 2023-09-28 10:18 | disposition home or self-care (01) ==
PROVIDERS: PCP Nurse Practitioner Primary Care; Visit Provider Nurse Practitioner
DX: Z98.890 Other specified postprocedural states (principal); R10.11 Right upper quadrant pain
CPT/HCPCS: 99214

== ENCOUNTER → 2023-09-28 08:01 | Outpatient (BNVA) | payer BC, SELFPAY | PROVIDERS: PCP Nurse Practitioner Primary Care; Visit Provider Nurse Practitioner ==

== ENCOUNTER 2023-10-25 10:27 | Outpatient (AMB) | payer BC, SELFPAY ==
--- NOTE | 2023-10-25 10:33 | A.OFFPC_ITS ---
Vital Signs 10/25/23 10:34 Height 6 ft Weight 186 lb BMI 25.2 BP 128/84 Blood Pressure Location Rt brachial Position Sitting Pulse 77 Pulse Source Pulse Oximeter Pulse Oximetry (%) 98 Oxygen Delivery Method Room Air Intake Visit Reasons: Annual PE Intake Note: pt is here for annual PE. Allergies pollen extracts [POLLEN] Allergy (Unknown, Verified 10/25/23 10:33) UNKNOWN ibuprofen Adverse Reaction (Verified 10/25/23 10:33) Itching DUST Allergy (Unknown, Uncoded 10/25/23 10:33) UNKNOWN Medication List - Last Reconciled 10/25/23 by CHAD Richey amlodipine 10 mg PO DAILY folic acid 1 mg PO DAILY omeprazole 20 mg PO DAILY Tobacco use date assessed: 10/25/23 Dental Screening Dental Screen Date: 08/23/23 HPI HPI Comments History of Present Illness Details Patient is a 48-year-old male in today for his physical exam Patient is up-to-date with colonoscopy with suggestion for repeat in 10 years, next colonoscopy due 2033. Patient is up-to-date with Tdap. He has a past medical history significant for Hypertension-controlled with amlodipine 10 mg p.o. daily. 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 Has upcoming appointment with [facility] podiatry in 3 months. History of fatty liver disease-patient is establish care Gastroenterology. Patient up-to-date with labs. Patient has pending abdominal ultrasound. GERD-patient utilizing omeprazole 20 mg p.o. p.r.n. with good effect. Neuropathy of right foot-will order nerve conduction study test. Contact dermatitis of bilateral legs-will give patient triamcinolone cream. Will give referral to Dermatology. Diminished eyesight over past year. Left worse than right. Will refer to Ophthalmology. REPLACED BY [facility] Medical History (Updated 10/25/23 @ 12:42 by CHAD Richey) Hypertension Surgical History (Updated 09/28/23 @ 08:17 by LUCRECIA Turner) History of esophagogastroduodenoscopy (EGD) Hx of colonoscopy Family History Maternal Grandmother Diabetes Social History Housing: Apartment Patient Tobacco Use Status: Former Tobacco user e-Cigarette/Vaping Use: Currently Using (THC) service: Yes ([employer] ) Current occupational status: employed Current occupation: [employer] Current occupational exposures/hazards: No Cognitive needs: No Hearing needs: No Vision needs: No Questionnaire Thrive Questionnaire Date Thrive assessed: 04/21/23 AUDIT C Alcohol Use Questionnaire (AUDIT-C) 1. How often do you have a drink containing alcohol?: 2-4 times a month 2. How many drinks containing alcohol do you have on a typical day when you are drinking?: 1 or 2 3. How often do you have six or more drinks on one occasion?: Never Total Score: 2 JOSSELYN-7 AMB Questionnaire JOSSELYN-7 Date JOSSELYN - 7 assessed: 04/21/23 Source: Developed by Drs. Merlin Cedeno, Elaine Carmona, Greg Eckert and colleagues, with an educational konrad from [employer]. Review of Systems Const All systems reviewed & are unremarkable except as noted in HPI and below Physical exam (Primary Care) Vital Signs: Last Vital Signs Pulse 77 10/25/23 10:34 BP 128/84 10/25/23 10:34 Pulse Ox 98 10/25/23 10:34 Oxygen Delivery Method Room Air 10/25/23 10:34 BMI result Body Mass Index 25.2 Tobacco/Smoking Status: Tobacco use Status Tobacco use date assessed 10/25/23 10/25/23 10:38 Patient Tobacco Use Status Former Tobacco user 10/25/23 10:38 e-Cigarette/Vaping Use Currently Using (THC) 10/25/23 10:38 Thrive Assessment: Date of Thrive Assessment Date Thrive assessed 04/21/23 10/25/23 10:38 Const Other: Appearance: Alert.? Oriented X3.? No acute distress.? Head: Normocephalic, atraumatic, no step-offs or deformities Eyes: Pupils equal, round and reactive to light.?EOMI. ENT: Pharynx normal.?TM intact and pearly dill. Neck: Normal inspection.? Neck supple.? CVS: Normal heart rate and rhythm.? Pulses normal.? Respiratory: No respiratory distress.? Breath sounds normal.? Abdomen: Soft and nontender.? Skin: Skin warm and dry.? Normal skin color.? Normal skin turgor.? Extremities: No lower extremity edema.? No calf ttp. 5/5 strength to bilateral upper and lower extremities Back: No midline tenderness, no C-spine tenderness, full range of motion, no CVA tenderness bilaterally Neuro: Oriented X 3.? No motor deficit.? No sensory deficit. CN 2-12 intact Assessment and Plan Assessment & Plan (1) Physical exam: Comment: Patient is up-to-date with colonoscopy with suggestion for repeat in 10 years, next colonoscopy due 2033. Patient is up-to-date with Tdap. He has a past medical history significant for Hypertension-controlled with amlodipine 10 mg p.o. daily. 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 Has upcoming appointment with [facility] podiatry in 3 months. History of fatty liver disease-patient is [facility] G[facility]. Patient up-to-date with labs. Patient has pending abdominal ultrasound. GERD-patient utilizing omeprazole 20 mg p.o. p.r.n. with good effect. Neuropathy of right foot-will order nerve conduction study test. Contact dermatitis of bilateral legs-will give patient triamcinolone cream. Will give referral to Dermatology. Diminished eyesight over past year. Left worse than right. Will refer to Ophthalmology. Patient has been educated on the importance of performing self-testicular exams. Code(s): Z00.00 - Encounter for general adult medical examination without abnormal findings (2) Dermatitis: Comment: Patient will get referral to Derm also get triamcinolone cream Code(s): L30.9 - Dermatitis, unspecified (3) Intermittent tingling sensation of right hand and foot: Comment: Tingling in the right foot. Will order nerve conduction study Code(s): R20.2 - Paresthesia of skin Orders: Orders NE nerve conduction velocity Today R20.2 - Paresthesia of skin Referrals Dermatology Referral L30.9 - Dermatitis, unspecified Ophthalmology Referral H54.62 - Unqualified visual loss, left eye, normal vision right eye Medications: New triamcinolone acetonide 0.1% 1 appl topical DAILY 15 grams 0RF Coding Level of Care Code Est Pt Prev Care 40-64y(44847) Diagnoses Physical exam Z00.00 Dermatitis L30.9 Intermittent tingling sensation of right hand and foot R20.2 Time Spent (min) 28
[2023-10-25 10:34] VITALS: BP 128/84; PULSE 77; O2SAT 98; BMI 25.2
== END 2023-10-25 11:16 | disposition home or self-care (01) ==
PROVIDERS: PCP Nurse Practitioner Primary Care; Visit Provider Nurse Practitioner Primary Care
DX: Z00.00 Encounter for general adult medical examination without abnormal findings (principal); L30.9 Dermatitis, unspecified; R20.2 Paresthesia of skin
CPT/HCPCS: 99396

== ENCOUNTER 2023-11-19 08:15 | Outpatient (REF) | payer BC, SELFPAY ==
--- NOTE | 2023-11-19 08:18 | EMG_ITS ---
Chief complaint: Chronic intermittent right foot numbness, denies pain, no footdrop Reason for referral: Evaluate for neuropathy Referred by: Mor Gaona Procedure done: Right lower extremity NCS/EMG Order was for right upper and lower extremity but patient denied symptoms on right hand, and did not think there was recent for testing right upper extremity. Precautions and/or limitations: None The limb temperature was monitored continuously and remained between 32-36 degrees C during the performance of the NCS. Nerve Conduction Studies Anti Sensory Summary Table ?Stim Site NR Onset (ms) Norm Onset (ms) Peak (ms) Norm Peak (ms) O-P Amp (?V) Norm O-P Amp Site1 Site2 Delta-0 (ms) Dist (cm) Osorio (m/s) Norm Osorio (m/s) Right Sural Anti Sensory (Lat Mall) Calf ? 3.0 3.8 <4.0 6.5 >5.0 Calf Lat Mall 3.0 14.0 47 Motor Summary Table ?Stim Site NR Onset (ms) Norm Onset (ms) O-P Amp (mV) Norm O-P Amp iAmp (mV) Amp (1st) (%) Site1 Site2 Delta-0 (ms) Dist (cm) Osorio (m/s) Norm Osorio (m/s) Right Peroneal Motor (Ext Dig Brev) Ankle ? 3.5 <4.0 2.7 >2.5 3.5 100.0 Ankle Ext Dig Brev 3.5 0.0 B Fib ? 12.3 3.0 3.6 111.1 B Fib Ankle 8.8 42.0 48 >40 Poplt ? 13.4 2.5 3.2 92.6 Poplt B Fib 1.1 5.0 45 >40 Right Tibial Motor (Abd Maier Brev) Ankle ? 3.6 <5 3.1 >2.5 5.0 100.0 Ankle Abd Maier Brev 3.6 0.0 Knee ? 13.2 2.8 3.9 90.3 Knee Ankle 9.6 46.0 48 >40 EMG ?Side Muscle Nerve Root Ins Act Fibs Psw Amp Dur Poly Recrt Int Pat Comment Right AbdHallucis MedPlantar S1-2 Nml Nml Nml Nml Nml 0 Nml Complete Right AntTibialis Dp Br Peron L4-5 Nml Nml Nml Nml Nml 0 Nml Complete Right PostTibialis Tibial L5, S1 Nml Nml Nml Nml Nml 0 Nml Complete Right MedGastroc Tibial S1-2 Nml Nml Nml Nml Nml 0 Nml Complete Right VastusMed Femoral L2-4 Nml Nml Nml Nml Nml 0 Nml Complete FINDINGS: All motor and sensory nerves tested showed normal latencies, amplitudes and conduction velocities. Concentric needle EMG was performed in selected muscles of the . Study revealed did not reveal signs of electric abnormalities as shown in the table above. IMPRESSION: 1. This is a normal study. 2. There is no electrodiagnostic evidence for peroneal neuropathy, tibial neuropathy, lumbosacral plexopathy, lumbar radiculopathy, or peripheral neuropathy. Thank you for your kind referral. Millie Urrutia MD, JOJO Board Certified, [place] [employer] and [employer] (ABPMR) Board Certified, [place] Board of Electrodiagnostic [employer] (ABEM) CODIN [id number] MTDD
== END 2023-11-19 08:16 | disposition home or self-care (01) ==
LOC: HO.NEURO 08:15
PROVIDERS: PCP Nurse Practitioner Primary Care; Visit Provider Nurse Practitioner Primary Care
DX: R20.2 Paresthesia of skin (principal)
CPT/HCPCS: 95886; 95908

== ENCOUNTER → 2023-11-19 08:18 | Outpatient (BNV) | payer BC, SELFPAY | PROVIDERS: PCP Nurse Practitioner Primary Care; Visit Provider Physical Medicine & Rehabilitation | DX: R20.2 Paresthesia of skin (principal) | CPT/HCPCS: 95886; 95908 ==

== ENCOUNTER 2024-03-08 11:27 | Outpatient (AMB) | payer BC, SELFPAY ==
[2024-03-08 11:28] VITALS: BP 132/88; PULSE 104; O2SAT 98; BMI 26.2
--- NOTE | 2024-03-08 11:28 | MHC.PC.OV ---
Vital Signs 03/08/24 11:28 Height 6 ft Weight 193 lb 4 oz BMI 26.2 BP 132/88 Blood Pressure Location Lt brachial Position Sitting Pulse 104 H Pulse Source Pulse Oximeter Pulse Oximetry (%) 98 Oxygen Delivery Method Room Air Intake Visit Reasons: Regular visit Allergies pollen extracts [POLLEN] Allergy (Unknown, Verified 03/08/24 11:33) UNKNOWN ibuprofen Adverse Reaction (Verified 03/08/24 11:33) Itching DUST Allergy (Unknown, Uncoded 03/08/24 11:33) UNKNOWN Tobacco use date assessed: 03/08/24 Dental Screening Dental Screen Date: 03/08/24 Did you have a dental visit in the last 12 months?: Yes Did you have a dental problem in the last 6 months where you did not have access to dental care?: No Was dental information given to patient?: Patient has dentist HPI Regular visit HPI Details History of Present Illness The patient is a 49-year-old male presenting with ongoing right foot pain. The discomfort is primarily localized to the lateral plantar aspect of the right foot. The patient has been experiencing this pain for a duration not specified in the conversation. 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 He has previously consulted a autistic teacher for this issue, and an X-ray was performed, which did not reveal any abnormalities. The patient has been advised on the utilization of adequate foot support, including the use of insoles, to alleviate symptoms. The problem has persisted, impacting his work, and consideration to limit mandatory overtime was discussed. Social History - Employment: Has been at the same job for approximately 10 years, involving repetitive use of the right foot to push a pedal. Review of Systems - Musculoskeletal: Reports right foot pain Physical Exam - Respiratory- Lungs clear - Cardiovascular- S1S2 heart sounds, no murmurs detected - Vascular- Positive dorsalis pedis pulse in the right foot - Musculoskeletal- No pain with palpation of the entire right foot Results - X-ray: No abnormalities found Plan - Right Foot Pain: It is suspected that the patient's occupational activity contributes significantly to his foot pain. Ensuring proper foot support with insoles is advised. A note will be provided to limit some of his mandatory overtime to prevent exacerbation of symptoms. Patient was informed and verbally consented to the use of an ambient scribe for clinic note documentation during this visit. Discussion Notes I discussed with the patient the likelihood that his occupational activities are contributing to his right foot pain, especially due to the repetitive motion of pushing a pedal. We talked about the importance of using adequate foot support, and I emphasized the use of insoles. To help manage his symptoms, I will provide a note restricting some of his mandatory overtime. We discussed the normal findings of the foot X-ray, which ruled out any obvious structural abnormalities. Patient Instructions - Use insoles for better foot support at work. - Adhere to the note regarding limiting mandatory overtime if foot pain persists. - Monitor for any changes or increase in foot pain, and seek care if necessary. [facility] Medical History Hypertension Surgical History History of esophagogastroduodenoscopy (EGD) Hx of colonoscopy Family History Maternal Grandmother Diabetes Social History Housing: Apartment Patient Tobacco Use Status: Former Tobacco user e-Cigarette/Vaping Use: Currently Using ([employer]C) service: Yes ([employer] ) Current occupational status: employed Current occupation: [employer] Current occupational exposures/hazards: No Cognitive needs: No Hearing needs: No Vision needs: No Questionnaire PHQ-9 Over the last 2 weeks, how often have you been bothered by any of the following problems? 1. Little interest or pleasure in doing things: more than half the days 2. Feeling down, depressed, or hopeless: more than half the days 3. Trouble falling or staying asleep, or sleeping too much: not at all 4. Feeling tired or having little energy: several days 5. Poor appetite or overeating: not at all 6. Feeling bad about yourself - or that you are a failure or have let yourself or your family down: not at all 7. Trouble concentrating on things, such as reading the newspaper or watching television: not at all 8. Moving or speaking so slowly that other people could have noticed. Or the opposite - being so fidgety or restless that you have been moving around a lot more than usual: not at all 9. Thoughts that you would be better off or of hurting yourself in some way: not at all Total score: 5 Depression Screening Interpretation: Negative Depression Screening Done: Yes 71740 - PHQ-9 Billing: Yes Source: Developed by Drs. Merlin Cedeno, Elaine Carmona, Greg Eckert and colleagues, with an educational konrad from [employer]. Thrive Questionnaire Date Thrive assessed: 03/01/24 I am a: Patient What is your living situation today?: I have a steady place to live Within the past 12 months, did the food you bought not last and you didn't have the money to get more?: Never true Within the past 12 months, did you worry whether your food would run out before you got money to buy more?: Never true Do you have trouble paying for medicines?: No Do you have trouble getting transportation to medical appointments?: No Do you have trouble paying your heating and electricity bill?: No Do you have trouble taking care of your child, family member or friend?: No Do you have trouble with day-to-day activities such as bathing, preparing meals, shopping, managing finances, etc.?: No Are you currently unemployed and looking for a job?: No Are you interested in more education?: No Please select the resources that you would like help with: None Currently or been in a relationship where the following occur: No concerns reported THRIVE Score: 0 AUDIT C Alcohol Use Questionnaire (AUDIT-C) 1. How often do you have a drink containing alcohol?: 2-4 times a month 2. How many drinks containing alcohol do you have on a typical day when you are drinking?: 1 or 2 3. How often do you have six or more drinks on one occasion?: Never Total Score: 2 JOSSELYN-7 AMB Questionnaire JOSSELYN-7 Date JOSSELYN - 7 assessed: 03/08/24 Feeling nervous, anxious, or on edge: 2 = More than half the days Not being able to stop or control worryin = More than half the days Worrying too much about different things: 2 = More than half the days Trouble relaxin = Not at all Being so restless that it is hard to sit still: 0 = Not at all Becoming easily annoyed or irritable: 2 = More than half the days Feeling afraid as if something awful might happen: 0 = Not at all Total JOSSELYN-7 score (0-4 normal; 5-9 mild; 10-14 moderate; 15-21 severe): 8 Source: Developed by Drs. Merlin Cedeno, Elaine Carmona, Greg Eckert and colleagues, with an educational konrad from [employer]. Physical exam (Primary Care) Vital Signs: Last Vital Signs Pulse 104 H 03/08/24 11:28 BP 132/88 03/08/24 11:28 Pulse Ox 98 03/08/24 11:28 Oxygen Delivery Method Room Air 03/08/24 11:28 BMI result Body Mass Index 26.2 Tobacco/Smoking Status: Tobacco use Status Tobacco use date assessed 03/08/24 03/08/24 11:34 Patient Tobacco Use Status Former Tobacco user 03/08/24 11:28 e-Cigarette/Vaping Use Currently Using (THC) 03/08/24 11:28 PHQ-9: PHQ-9 Score PHQ-9: Total score 5 03/08/24 11:47 Depression Screening Interpretation: Negative Thrive Assessment: Date of Thrive Assessment Date Thrive assessed 03/01/24 03/08/24 11:28 Currently or been in a relationship where the following occur: No concerns reported Coding Level of Care Code Est Pt Level 3 (61061) Diagnoses Right foot pain M79.671 Additional Codes PHQ-9 - 83416 - PHQ-9 Billing: Yes ([id number]) Assessment & Plan Assessment & Plan (1) Right foot pain: Code(s): M79.671 - Pain in right foot Category: Medical Plan: .
== END 2024-03-08 12:16 | disposition home or self-care (01) ==
PROVIDERS: PCP Nurse Practitioner Family; Visit Provider Nurse Practitioner Family
DX: M79.671 Pain in right foot (principal)

== ENCOUNTER → 2024-03-08 11:27 | Outpatient (BNVA) | payer BC, SELFPAY | PROVIDERS: PCP Nurse Practitioner Family; Visit Provider Nurse Practitioner Family | DX: M79.671 Pain in right foot (principal) | CPT/HCPCS: 96127 ==

== ENCOUNTER 2024-09-11 07:48 | Outpatient (AMB) | payer BC, SELFPAY ==
--- OUTSIDE RECORDS SUMMARY | 2024-09-11 07:51 | XMS_ITS ---
Author Organization [facility] Address [address] [place] [address] Care Team Providers Care Leather Seasoner Name Role Phone Frederick Nicholas Primary Care Provider Unav ailAkanksha Aquino Unavailable [phone] Allergies Allergen (clinical drug ingredient) Drug/Non Drug Allergy documented on EMR Reaction Allergy Type Onset Date Status ibuprofen Ibuprofen itching Drug Allergy Active Medications Medication SIG (Take, Route, Frequency, Duration) Notes Start Date End Date Status Nystatin 189536 UNIT/GM APPLY TOPICALLY ONCE DAILY External for 30 Days Not-Taking Triamcinolone Acetonide 0.1 % External for 15 Days Not-James ing Folic Acid 1 MG TAKE 1 TABLET BY PHILIPPE TH EVERY DAY Oral for 90 Days Not-Taking amLODIPine Besylate 2.5 MG Oral for 90 Days Active Omeprazole 20 MG Oral for 90 Days Active Encounters Encounter Location Date Provider Diagnosis [facility] [address] [place] [address] 04/14/2024 Akanksha Sahu Plan Of Treatment No Information Progress Notes * Wenide RAJPUT RDOB: [birth year] (49 yo M)Acc No.[id number]:04/14/2024 Progress Note Patient:?Wendie RAJPUT Provider:Jazzy Sahu DPM :1975???Age:49 Y???Sex:Male Aamir e:04/14/2024 Address:[address], [place] Pcp:Frederick Casillas NP-CATE Subjective: * Chief Complaints: * ??? * Medical History:?Chicken pox , High Blood Pressure. * Medications:?Taking amLODIPi ne Besylate 2.5 MG Tablet Oral , Taking Omeprazole 20 MG Capsule Delayed Release Oral , Not-Taking/PRN Triamcinolone Acetonide 0.1 % Cream External , Not-Taking/PRN Folic Acid 1 MG Tablet TAKE 1 TABLET BY MOUTH EVERY DAY Oral , Not-Taking/PRN Nystatin 455460 UNIT/GM Cream APPLY TOPICALLY ONCE DAILY External * Allergies:?Ibuprofen: itchin g. Objective: * Vitals:? Assessment: Plan: * Treatment: * Images: * The named appointment provid er may or may not be the originator of this progress note, and it is not deemed complete until electronically signed by the appointment provider. Sign off status: Pending * Provider:?Akanksha Sahu DPM Date:?06/2024 Generated for Aliya melo/Adele/Sara on:?09/11/2024 07:50 AM EDT
[2024-09-11 07:52] VITALS: BP 138/80; PULSE 90; RESP 16; TEMP 36.9; O2SAT 99; BMI 24.4
--- NOTE | 2024-09-11 07:52 | A.OFFPC_ITS ---
Vital Signs 09/11/24 07:52 Height 6 ft Weight 180 lb BMI 24.4 BP 138/80 Blood Pressure Location Lt brachial Position Sitting Respiration 16 Pulse 90 Pulse Source Pulse Oximeter Temp 98.4 F Temp Source Oral Pulse Oximetry (%) 99 Oxygen Delivery Method Room Air Intake Visit Reasons: 6m follow up Intake Note: Pt is here today for his 6mo. f/u Allergies pollen extracts [POLLEN] Allergy (Unknown, Verified 09/11/24 07:53) UNKNOWN ibuprofen Adverse Reaction (Verified 09/11/24 07:53) Itching DUST Allergy (Unknown, Uncoded 09/11/24 07:53) UNKNOWN Tobacco use date assessed: 09/11/24 Dental Screening Dental Screen Date: 09/11/24 Did you have a dental visit in the last 12 months?: Yes Did you have a dental problem in the last 6 months where you did not have access to dental care?: No Was dental information given to patient?: Patient has dentist HPI 6m follow up HPI Details Chief Complaint The patient presents with right foot pain. History of Present Illness The patient is a 49-year-old male presenting with right foot pain. The pain is linked to repetitive motion experienced at work and has been managed effectively with the use of insoles. There are no other associated symptoms reported, and the insoles have provided substantial relief. Additionally, the patient has a history of essential hypertension, well-managed with prescribed medication. He denies any cardiovascular or neurological symptoms such as shortness of breath, chest pain, or headaches, indicating stability in his condition. Social History - Employment involves activities contrib uting to repetitive motion. - No other social determinants of health discussed. Health Maintenance Review of Systems - Musculoskeletal: Reports right foot pa in. - Cardiovascular: Denies shortness of br eath, chest pain. - Neurological: Denies headaches, blurre d vision. Physical Exam General: Cooperative, healthy appearing, comfortable, no acute distress and well developed Orientation: Patient oriented x3 Limitations: No limitations Head: Normal to inspection Ears: Hearing grossly normal bilaterally Nose: Normal external nose present Face and sinus: Normal facial exam Eyes: Appearance normal, both eyes and all related structures Neck: Normal visual inspection and Yes full ROM Respiratory: Normal respiratory effort and able to speak in complete sentences. Clear to auscultation bilaterally Cardiovascular: Regular rate and rhythm. Normal S1 and S2 GI: Normal to inspection. Soft to palpation and nontender Skin: No rashes or lesions noted Neuro: Patient oriented x3 Extremities: Normal to inspection Results Plan The patient will continue using insoles which have been effective for his right foot pain associated with repetitive motion. His essential hypertension continues to be managed with his current medication regimen, with no changes required at this time given his stability. Laboratory tests will be conducted to ensure his hypertension remains well-managed, in preparation for an upcoming comprehensive physical examination. Discussion Notes I discussed with the patient the effectiveness of the insoles in managing his right foot pain and encouraged continued use. We reviewed his current medication regimen for essential hypertension, and I emphasized the importance of adherence to maintain stability in his condition. I informed him that lab tests have been ordered to provide comprehensive data for his upcoming full physical examination, ensuring that his hypertension management is optimal. Follow-up was planned in a few months. Patient Instructions - Continue wearing the insoles as they h elp with the foot pain. - Keep taking your blood pressure medica tion as prescribed. - Please complete the lab tests before y our next visit. - Watch for any new or worsening symptom s and contact us if they occur. [facility] Medical History Hypertension Surgical History History of esophagogastroduodenoscopy (EGD) Hx of colonoscopy Family History Maternal Grandmother Diabetes Social History Housing: Apartment Patient Tobacco Use Status: Former Tobacco user e-Cigarette/Vaping Use: Currently Using (THC) service: Yes ([employer] ) Current occupational status: employed Current occupation: [employer] Current occupational exposures/hazards: No Cognitive needs: No Hearing needs: No Vision needs: No Questionnaire PHQ-9 Over the last 2 weeks, how often have you been bothered by any of the following problems? 1. Little interest or pleasure in doing things: not at all 2. Feeling down, depressed, or hopeless: not at all 3. Trouble falling or staying asleep, or sleeping too much: not at all 4. Feeling tired or having little energy: not at all 5. Poor appetite or overeating: not at all 6. Feeling bad about yourself - or that you are a failure or have let yourself or your family down: not at all 7. Trouble concentrating on things, such as reading the newspaper or watching television: not at all 8. Moving or speaking so slowly that other people could have noticed. Or the opposite - being so fidgety or restless that you have been moving around a lot more than usual: not at all 9. Thoughts that you would be better off or of hurting yourself in some way: not at all Total score: 0 Depression Screening Interpretation: Negative Depression Screening Done: Yes 17035 - PHQ-9 Billing: Yes Source: Developed by Drs. Merlin Cedeno, Elaine Carmona, Greg Eckert and colleagues, with an educational konrad from [employer]. Thrive Questionnaire Date Thrive assessed: 09/07/24 I am a: Patient What is your living situation today?: I have a steady place to live Within the past 12 months, did the food you bought not last and you didn't have the money to get more?: Never true Within the past 12 months, did you worry whether your food would run out before you got money to buy more?: Never true Do you have trouble paying for medicines?: No Do you have trouble getting transportation to medical appointments?: No Do you have trouble paying your heating and electricity bill?: No Do you have trouble taking care of your child, family member or friend?: I choose not to answer this question Do you have trouble with day-to-day activities such as bathing, preparing meals, shopping, managing finances, etc.?: No Are you currently unemployed and looking for a job?: No Are you interested in more education?: No Please select the resources that you would like help with: None Currently or been in a relationship where the following occur: No concerns reported THRIVE Score: 0 AUDIT C Alcohol Use Questionnaire (AUDIT-C) 1. How often do you have a drink containing alcohol?: 2-4 times a month 2. How many drinks containing alcohol do you have on a typical day when you are drinking?: 1 or 2 3. How often do you have six or more drinks on one occasion?: Never Total Score: 2 JOSSELYN-7 AMB Questionnaire JOSSELYN-7 Date JOSSELYN - 7 assessed: 09/11/24 Feeling nervous, anxious, or on edge: 2 = More than half the days Not being able to stop or control worryin = More than half the days Worrying too much about different things: 2 = More than half the days Trouble relaxin = Not at all Being so restless that it is hard to sit still: 0 = Not at all Becoming easily annoyed or irritable: 2 = More than half the days Feeling afraid as if something awful might happen: 0 = Not at all Total JOSSELYN-7 score (0-4 normal; 5-9 mild; 10-14 moderate; 15-21 severe): 8 Source: Developed by Drs. Merlin Cedeno, Elaine Carmona, Greg Eckert and colleagues, with an educational konrad from [employer]. Physical exam (Primary Care) Vital Signs: Last Vital Signs Temp 98.4 F 09/11/24 07:52 Pulse 90 09/11/24 07:52 Resp 16 09/11/24 07:52 BP 138/80 09/11/24 07:52 Pulse Ox 99 09/11/24 07:52 Oxygen Delivery Method Room Air 09/11/24 07:52 BMI result Body Mass Index 24.4 Tobacco/Smoking Status: Tobacco use Status Tobacco use date assessed 09/11/24 09/11/24 07:58 Patient Tobacco Use Status Former Tobacco user 09/11/24 07:58 e-Cigarette/Vaping Use Currently Using (THC) 09/11/24 07:58 PHQ-9: PHQ-9 Score PHQ-9: Total score 0 09/11/24 07:58 Depression Screening Interpretation: Negative Thrive Assessment: Date of Thrive Assessment Date Thrive assessed 09/07/24 09/11/24 07:58 Currently or been in a relationship where the following occur: No concerns reported Coding Level of Care Code Est Pt Level 3 (58643) Diagnoses Right foot pain M79.671 Primary hypertension I10 Hypertension type: primary hypertension Screening for prostate cancer Z12.5 Additional Codes PHQ-9 - 06205 - PHQ-9 Billing: Yes ([id number]) Assessment & Plan Assessment & Plan (1) Right foot pain: Code(s): M79.671 - Pain in right foot Category: Medical (2) Hypertension: Comment: Amlodipine 10 mg Code(s): I10 - Essential (primary) hypertension Category: Medical Qualifiers: Hypertension type: primary hypertension Qualified Code(s): I10 - Essential (primary) hypertension (3) Screening for prostate cancer: Code(s): Z12.5 - Encounter for screening for malignant neoplasm of prostate Category: Medical Plan . Orders: Orders Lipid Panel Today I10 - Essential (primary) hypertension, M79.671 - Pain in right foot Prostate Specific Antigen Scr Today Z12.5 - Encounter for screening for malignant neoplasm of prostate Complete Blood Count Auto Diff Today I10 - Essential (primary) hypertension, M79.671 - Pain in right foot Comprehensive [place]. Panel Fast Today I10 - Essential (primary) hypertension, M79.671 - Pain in right foot TSH reflex Free T4 Today I10 - Essential (primary) hypertension, M79.671 - Pain in right foot UA CC w/rflx Micro + Cult Today I10 - Essential (primary) hypertension, M79.671 - Pain in right foot
== END 2024-09-11 08:28 | disposition home or self-care (01) ==
LOC: HO.HMCC 07:49
PROVIDERS: PCP Nurse Practitioner Family; Visit Provider Nurse Practitioner Family
DX: M79.671 Pain in right foot (principal); I10 Essential (primary) hypertension; Z12.5 Encounter for screening for malignant neoplasm of prostate

== ENCOUNTER → 2024-09-11 07:48 | Outpatient (BNVA) | payer BC, SELFPAY | PROVIDERS: PCP Nurse Practitioner Family; Visit Provider Nurse Practitioner Family | DX: M79.671 Pain in right foot (principal); I10 Essential (primary) hypertension; Z79.899 Other long term (current) drug therapy | CPT/HCPCS: 96127 ==

== ENCOUNTER 2024-11-23 07:50 | Outpatient (AMB) | payer BC, SELFPAY ==
--- OUTSIDE RECORDS SUMMARY | 2024-04-14 08:00 | XMS_ITS ---
Author Organization [facility] Address [address] [place] [address] Care Team Providers Care Electromechanisms Design Drafter Name Role Phone Frederick Nicholas Primary Care Provider Unav ailable Akanksha Sahu Unavailable [phone] Allergies Allergen (clinical drug ingredient) Drug/Non Drug Allergy documented on EMR Reaction Allergy Type Onset Date Status ibuprofen Ibuprofen itching Drug Allergy Active Medications Medication SIG (Take, Route, Frequency, Duration) Notes Start Date End Date Status Nystatin 238225 UNIT/GM APPLY TOPICALLY ONCE DAILY External; Duration: 30 Days Not-Taking Triamcinolone Acetonide 0.1 % External; Duration: 15 Days Not-Taking Folic Acid 1 MG TAKE 1 TABLET BY PHILIPPE TH EVERY DAY Oral; Duration: 90 Days Not-Taking amLODIPine Besylate 2.5 MG Oral; Duratio n: 90 Days Active Omeprazole 20 MG Oral; Duration: 90 Days Active Encounters Encounter Location Date Provider Diagnosis [facility] [address] [place] [address] 04/14/2024 Akanksha Sahu Plan Of Treatment No Information Progress Notes * Wendie RAJPUT RDOB: [birth year] (49 yo M)Acc No.[id number]:04/14/2024 Progress Note Patient: Wali CYNTHIAMINDI Wendie Duggan Provider: Wali Sahu DPM :1975 A ge:49 Y S ex:Male Date:04/14/2024 Address:[address], [place] Pcp:Frederick Casillas TILE DITCHER-BC Subjective: * Chief Complaints: * * Medical History: C hicken pox, High Blood Pressure. * Medications: T aking amLODIPine Besylate 2.5 MG Tablet Oral , Taking Omeprazole 20 MG Capsule Delayed Release Oral , Not-Taking/PRN Triamcinolone Acetonide 0.1 % Cream External , Not-Taking/PRN Folic Acid 1 MG Tablet TAKE 1 TABLET BY MOUTH EVERY DAY Oral , Not-Taking/PRN Nystatin 130357 UNIT/GM Cream APPLY TOPICALLY ONCE DAILY External [...] 04/14/2024 Generated for Aliya melo/Adele/Sara on: 0 11/23/2024 07:53 AM EDT
[2024-11-23 08:03] VITALS: BP 140/100; PULSE 57; RESP 16; TEMP 36.8; O2SAT 98; BMI 25.5
--- NOTE | 2024-11-23 08:03 | A.OFFPC_ITS ---
Vital Signs 11/23/24 08:03 Height 6 ft Weight 188 lb BMI 25.5 BP 140/100 H Blood Pressure Location Lt brachial Position Sitting Respiration 16 Pulse 57 Pulse Source Pulse Oximeter Temp 98.2 F Temp Source Oral Pulse Oximetry (%) 98 Oxygen Delivery Method Room Air Intake Visit Reasons: PE Delivery Man Required: No Accompanied by: Self / Same As Patient Allergies pollen extracts (POLLEN) Allergy (Unknown, Verified 11/23/24 08:06) UNKNOWN ibuprofen Adverse Reaction (Verified 11/23/24 08:06) Itching DUST Allergy (Unknown, Uncoded 09/11/24 07:53) UNKNOWN Tobacco use date assessed: 11/23/24 Dental Screening Dental Screen Date: 11/23/24 Did you have a dental visit in the last 12 months?: Yes Did you have a dental problem in the last 6 months where you did not have access to dental care?: No Was dental information given to patient?: Patient has dentist HPI PE HPI Details History of Present Illness The patient is a 49-year-old male presenting for a physical examination and preventative care. He has a history of essential hypertension, for which he is currently taking amlodipine. His blood pressure remains elevated today, but he attributes this to white coat syndrome. He has been advised to monitor his blood pressure at home and report the readings via the patient portal in two weeks. The patient denies experiencing any chest pain, dyspnea, abdominal pain, hematochezia, constipation, diarrhea, fever, chills, or any psychiatric symptoms such as suicidal or homicidal ideation. His colon cancer screening is up to date, and he denies any urinary symptoms. Health Maintenance - Colon cancer screening is up to date - Blood pressure monitoring at home advi sed Social History Review of Systems - Cardiovascular: Denies chest pain, rep orts white coat syndrome - Respiratory: Denies dyspnea - Gastrointestinal: Denies abdominal gwen n, hematochezia, constipation, diarrhea - General: Denies fever, chills - Psychiatric: Denies suicidal ideation, homicidal ideation - Genitourinary: Denies urinary symptoms Physical Exam General: Cooperative, healthy appearing, comfortable, no acute distress and well developed Orientation: Patient oriented x3 Limitations: No limitations Head: Normal to inspection Ears: Hearing grossly normal bilaterally Nose: Normal external nose present Face and sinus: Normal facial exam Eyes: Appearance normal, both eyes and all related structures Neck: Normal visual inspection and Yes full ROM Respiratory: Normal respiratory effort and able to speak in complete sentences. Clear to auscultation bilaterally Cardiovascular: Regular rate and rhythm. Normal S1 and S2 GI: Normal to inspection. Soft to palpation and nontender : Testicles without masses/lesions and no hernias appreciated Skin: No rashes or lesions noted Neuro: Patient oriented x3 Extremities: Normal to inspection Results Plan The patient will continue with amlodipine for hypertension management. He is advised to monitor his blood pressure at home and report the readings via the patient portal in two weeks. His colon cancer screening is up to date, and no further action is required at this time. Discussion Notes I discussed with the patient the importance of monitoring his blood pressure at home due to the elevated readings observed today, likely influenced by white coat syndrome. We agreed on a plan for him to report his home blood pressure readings via the patient portal in two weeks. I also confirmed that his colon cancer screening is current, and no further immediate action is needed. Patient Instructions - Continue taking amlodipine as prescrib ed. - Monitor blood pressure at home and rep ort readings via the patient portal in two weeks. - No further action needed for colon can cer screening at this time. [facility] Medical History Hypertension Surgical History History of esophagogastroduodenoscopy (EGD) Hx of colonoscopy Family History Maternal Grandmother Diabetes Social History Housing: Apartment Patient Tobacco Use Status: Former Tobacco user e-Cigarette/Vaping Use: Currently Using (THC) service: Yes ([employer] ) Current occupational status: employed Current occupation: [employer] Current occupational exposures/hazards: No Cognitive needs: No Hearing needs: No Vision needs: No Questionnaire PHQ-9 Over the last 2 weeks, how often have you been bothered by any of the following problems? 1. Little interest or pleasure in doing things: not at all 2. Feeling down, depressed, or hopeless: not at all 3. Trouble falling or staying asleep, or sleeping too much: not at all 4. Feeling tired or having little energy: not at all 5. Poor appetite or overeating: not at all 6. Feeling bad about yourself - or that you are a failure or have let yourself or your family down: not at all 7. Trouble concentrating on things, such as reading the newspaper or watching television: not at all 8. Moving or speaking so slowly that other people could have noticed. Or the opposite - being so fidgety or restless that you have been moving around a lot more than usual: not at all 9. Thoughts that you would be better off or of hurting yourself in some way: not at all Total score: 0 Depression Screening Interpretation: Negative Depression Screening Done: Yes 36092 - PHQ-9 Billing: Yes Source: Developed by Drs. Merlin Cedeno, Elaine Carmona, Greg Eckert and colleagues, with an educational konrad from [employer]. Thrive Questionnaire Date Thrive assessed: 09/07/24 I am a: Patient What is your living situation today?: I have a steady place to live Within the past 12 months, did the food you bought not last and you didn't have the money to get more?: Never true Within the past 12 months, did you worry whether your food would run out before you got money to buy more?: Never true Do you have trouble paying for medicines?: No Do you have trouble getting transportation to medical appointments?: No Do you have trouble paying your heating and electricity bill?: No Do you have trouble taking care of your child, family member or friend?: I choose not to answer this question Do you have trouble with day-to-day activities such as bathing, preparing meals, shopping, managing finances, etc.?: No Are you currently unemployed and looking for a job?: No Are you interested in more education?: No Please select the resources that you would like help with: None Currently or been in a relationship where the following occur: No concerns reported THRIVE Score: 0 JOSSELYN-7 AMB Questionnaire JOSSELYN-7 Date JOSSELYN - 7 assessed: 09/11/24 Feeling nervous, anxious, or on edge: 2 = More than half the days Not being able to stop or control worryin = More than half the days Worrying too much about different things: 2 = More than half the days Trouble relaxin = Not at all Being so restless that it is hard to sit still: 0 = Not at all Becoming easily annoyed or irritable: 2 = More than half the days Feeling afraid as if something awful might happen: 0 = Not at all Total JOSSELYN-7 score (0-4 normal; 5-9 mild; 10-14 moderate; 15-21 severe): 8 Source: Developed by Drs. Merlin Cedeno, Elaine Carmona, Greg Eckert and colleagues, with an educational konrad from [employer]. JOSSELYN-7 Assessment Billing JOSSELYN-7 Assessment Tool: JOSSELYN-7 Assessment 22495 Physical exam (Primary Care) Vital Signs: Last Vital Signs Temp 98.2 F 11/23/24 08:03 Pulse 57 11/23/24 08:03 Resp 16 11/23/24 08:03 BP 140/100 H 11/23/24 08:03 Pulse Ox 98 11/23/24 08:03 Oxygen Delivery Method Room Air 11/23/24 08:03 BMI result Body Mass Index 25.5 Tobacco/Smoking Status: Tobacco use Status Tobacco use date assessed 11/23/24 11/23/24 08:10 Patient Tobacco Use Status Former Tobacco user 11/23/24 08:10 e-Cigarette/Vaping Use Currently Using (THC) 11/23/24 08:10 PHQ-9: PHQ-9 Score PHQ-9: Total score 0 11/23/24 08:10 Depression Screening Interpretation: Negative Thrive Assessment: Date of Thrive Assessment Date Thrive assessed 09/07/24 11/23/24 08:10 Currently or been in a relationship where the following occur: No concerns reported Coding Level of Care Code Est Pt Prev Care 40-64y(24201) Diagnoses Physical exam Z00.00 Screening for prostate cancer Z12.5 Additional Codes JOSSELYN-7 Assessment Billing - JOSSELYN-7 Assessment Tool: JOSSELYN-7 Assessment 25209 ([id number]) PHQ-9 - 78312 - PHQ-9 Billing: Yes ([id number]) Assessment & Plan Assessment & Plan (1) Physical exam: Code(s): Z00.00 - Encounter for general adult medical examination without abnormal findings Category: Medical (2) Screening for prostate cancer: Code(s): Z12.5 - Encounter for screening for malignant neoplasm of prostate Category: Medical Plan . Orders: Orders Complete Blood Count Auto Diff Today Z00.00 - Encounter for general adult medical examination without abnormal findings Comprehensive [place]. Panel Fast Today Z00.00 - Encounter for general adult medical examination without abnormal findings TSH reflex Free T4 Today Z00.00 - Encounter for general adult medical examination without abnormal findings UA CC w/rflx Micro + Cult Today Z00.00 - Encounter for general adult medical examination without abnormal findings Prostate Specific Antigen Scr Today Z12.5 - Encounter for screening for malignant neoplasm of prostate Lipid Panel Today Z00.00 - Encounter for general adult medical examination without abnormal findings
== END 2024-11-23 08:58 | disposition home or self-care (01) ==
LOC: HO.HMCC 07:52
PROVIDERS: PCP Nurse Practitioner Family; Visit Provider Nurse Practitioner Family
DX: Z00.00 Encounter for general adult medical examination without abnormal findings (principal); Z12.5 Encounter for screening for malignant neoplasm of prostate

== ENCOUNTER → 2024-11-23 07:50 | Outpatient (BNVA) | payer BC, SELFPAY | PROVIDERS: PCP Nurse Practitioner Family; Visit Provider Nurse Practitioner Family | DX: Z00.00 Encounter for general adult medical examination without abnormal findings (principal); I10 Essential (primary) hypertension; Z79.899 Other long term (current) drug therapy | CPT/HCPCS: 96127 ==

== ENCOUNTER 2024-12-23 13:01 | Outpatient (REF) | payer BC, SELFPAY ==
--- OUTSIDE RECORDS SUMMARY | 2024-04-14 08:00 | XMS_ITS ---
Author Organization [facility] Address [address] [place] [address] Care Team Providers Care Account Executive Metalworking Name Role Phone Frederick Nicholas Primary Care Provider Unav ailable Akanksha Sahu Unavailable [phone] Allergies Allergen (clinical drug ingredient) Drug/Non Drug Allergy documented on EMR Reaction Allergy Type Onset Date Status ibuprofen Ibuprofen itching Drug Allergy Active Medications Medication SIG (Take, Route, Frequency, Duration) Notes Start Date End Date Status Nystatin 734801 UNIT/GM APPLY TOPICALLY ONCE DAILY External; Duration: 30 Days Not-Taking Triamcinolone Acetonide 0.1 % External; Duration: 15 Days Not-Taking Folic Acid 1 MG TAKE 1 TABLET BY PHILIPPE TH EVERY DAY Oral; Duration: 90 Days Not-Taking amLODIPine Besylate 2.5 MG Oral; Duratio n: 90 Days Active Omeprazole 20 MG Oral; Duration: 90 Days Active Encounters Encounter Location Date Provider Diagnosis [facility] [address] [place] [address] 04/14/2024 Akanksha Sahu Plan Of Treatment No Information Progress Notes * Wendie RAJPUT RDOB: [birth year] (49 yo M)Acc No.[id number]:04/14/2024 Progress Note Patient: Wali CLOTILDE Wendie Duggan Provider: Wali Sahu DPM :1975 A ge:49 Y S ex:Male Date:04/14/2024 Address:[address], [place] Pcp:Frederick Casillas ORGANIZATIONAL EFFECTIVENESS DIRECTOR-BC Subjective: * Chief Complaints: * * Medical History: C hicken pox, High Blood Pressure. * Medications: T aking amLODIPine Besylate 2.5 MG Tablet Oral , Taking Omeprazole 20 MG Capsule Delayed Release Oral , Not-Taking/PRN Triamcinolone Acetonide 0.1 % Cream External , Not-Taking/PRN Folic Acid 1 MG Tablet TAKE 1 TABLET BY MOUTH EVERY DAY Oral , Not-Taking/PRN Nystatin 529916 UNIT/GM Cream APPLY TOPICALLY ONCE DAILY External * Allergies: I buprofen: itching. Objective: * Vitals: Assessment: Plan: * Treatment: * Images: * The named appointment provid er may or may not be the originator of this progress note, and it is not deemed complete until electronically signed by the appointment provider. Sign off status: Pending * Provider: Wali Sahu DPM Date: 0 04/14/2024 Generated for Aliya melo/Adele/Sara on: 0 12/23/2024 01:04 PM EDT
--- OUTSIDE RECORDS SUMMARY | 2024-12-23 13:04 | XMS_ITS | Patient Health Record ---
Author Organization [facility] Address [address] [place] [address] Care Team Providers Care Barrel Polisher Name Role Phone Frederick Nicholas Primary Care Provider Maryuri Akanksha León Unavailable [phone] Allergies Allergen (clinical drug ingredient) Drug/Non Drug Allergy documented on EMR Reaction Allergy Type Onset Date Status ibuprofen Ibuprofen itching Drug Allergy Active Reason For Referral No Information Medications Medication SIG (Take, Route, Frequency, Duration) Notes Start Date End Date Status Nystatin 579755 UNIT/GM APPLY TOPICALLY ONCE DAILY External; Duration: 30 Days Not-Taking Triamcinolone Acetonide 0.1 % External; Duration: 15 Days Not-Taking Folic Acid 1 MG TAKE 1 TABLET BY PHILIPPE TH EVERY DAY Oral; Duration: 90 Days Not-Taking amLODIPine Besylate 2.5 MG Oral; Duratio n: 90 Days Active Omeprazole 20 MG Oral; Duration: 90 Days Active Social History Tobacco Use: Social History Observation Description Date Details (start date - stop date) Former Smoker NA - NA Tobacco Use/Smoking Question Answer Notes Are you a: former smoker Additional Findings: Tobacco Non-User Current no n-smoker Alcohol Screen Question Answer Notes Did you have a drink containing alcohol in the p ast year? Yes Points 0 Interpretation Negative Tobacco use other than smoking: Question Answer Notes Are you an other tobacco user? Yes V ape Vital Signs Height 6 ft in 01/12/2024 Weight 180 lbs lbs 01/12/2024 BMI 24.41 kg/m2 01/12/2024 Encounters Encounter Location Date Provider Diagnosis [facility] [address] [place] [address] 01/12/2024 Akanksha Sahu Pain in left foot M79.672 ; Edema, lower extremity R60.0 ; Pain in right foot M79.671 ; Flat foot [pes planus] (acquired), right foot M21.41 and Flat foot [pes planus] (acquired), left foot M21.42 [facility] [address] [place] [address] 01/05/2024 Akanksha Sahu [facility] [place] [address] [place] [address] 01/12/2024 Akanksha Sahu [facility] [address] 04/14/2024 Akanksha Sahu Assessments Encounter Date Diagnosis (ICD Code) Assessment Notes Treatment Notes Treatment Clinical Notes Section Notes 01/12/2024 Pain in left foot (ICD-10 - M79.672) 01/12/2024 Edema, lower extremity (ICD-10 - R60.0) 01/12/2024 Pain in right foot (ICD-10 - M79.671) 01/12/2024 Flat foot [pes planus] (acquired), right foot (ICD-10 - M21.41) 01/12/2024 Flat foot [pes planus] (acquired), left foot (ICD-10 - M21.42) Plan Of Treatment Pending Test Test Name Order Date X ray : Foot, left 3V 01/12/2024 X ray : Foot, right 3V 01/12/2024 Insurance Providers Payer Name Payer Address Payer Phone Subscriber Number Group Number Insured Name Patient Relationship to Insured Coverage Start Date Coverage End Date [facility] All Others [address] [place] [address] [id number] Wendie Ulloa Self - patient is the insured Medical (General) History Medical History History ICD Code Chicken pox High Blood Pressure
[2024-12-23 15:20] LABS: MANUAL DIFF FLAG NO
[2024-12-23 15:23] LABS: Hematocrit 42.4 % (42.0-52.0); Hemoglobin 15.5 g/dl (14.0-18.0); Imm Gran Abs Auto 0.02 X10*3/uL (0.00-0.03); Imm Gran Pct Auto 0.4 % (0.0-0.4); Lymphocytes Absolute Auto 1.5 X10*3/uL (1.2-4.9); Mean Corpuscular HGB Conc 36.6 g/dl (31.0-36.0); Mean Corpuscular Hemoglobin 32.6 pg (27.0-33.0); Mean Corpuscular Volume 89.1 fL (80.0-98.0); NRBC Abs Auto 0.000 X10*3/uL (0.0-0.012); NRBC Pct Auto 0.0 /100WBC (0.0-0.2); Platelet Count 253 X10*3/uL (160-400); Red Blood Count 4.76 X10*6/uL (4.60-5.80); White Blood Count 4.6 X10*3/uL (4.8-10.8)
[2024-12-23 15:25] LABS: Appearance Urine Clear; Glucose Urine UA Negative (Negative); PH 7.0 (5.0-9.0); Specific Gravity - Urine 1.015 (1.005-1.025)
[2024-12-23 15:48] LABS: Alanine Aminotransferase 38 U/L (0-40); Albumin Level 4.9 g/dL (3.5-5.0); Alkaline Phosphatase 53 U/L (39-117); Anion Gap 16 (12-20); Aspartate Amino Transferase 32 U/L (5-37); Blood Urea Nitrogen 12 mg/dL (9-16); Calcium 9.3 mg/dL (8.4-10.2); Carbon Dioxide 25 mmol/L (22-29); Chloride 104 mmol/L (96-108); Cholesterol 198 mg/dL (<200); Estimated Glomerular Filt Rate > 60; HDL Cholesterol 48 mg/dL (>40); Potassium 3.2 mmol/L (3.3-5.1); Sodium 142 mmol/L (135-145); Total Protein 8.2 g/dL (6.5-8.0); Triglycerides 106 mg/dL (<150)
== END 2024-12-23 13:02 | disposition home or self-care (01) ==
LOC: HO.HMGCLDS 13:01
PROVIDERS: PCP Nurse Practitioner Family; Visit Provider Nurse Practitioner Family
DX: Z00.00 Encounter for general adult medical examination without abnormal findings (principal); Z12.5 Encounter for screening for malignant neoplasm of prostate; I10 Essential (primary) hypertension
CPT/HCPCS: 36415; 80053; 80061; 81003; 84153; 84443; 85025

== ENCOUNTER 2025-01-05 13:36 | Outpatient (REF) | payer BC, SELFPAY ==
--- OUTSIDE RECORDS SUMMARY | 2024-04-14 08:00 | XMS_ITS ---
Author Organization [facility] Address [address] [place] [address] Care Team Providers Care Public Address Servicer Name Role Phone Frederick Nicholas Primary Care Provider Unav ailable Akanksha Sahu Unavailable [phone] Allergies Allergen (clinical drug ingredient) Drug/Non Drug Allergy documented on EMR Reaction Allergy Type Onset Date Status ibuprofen Ibuprofen itching Drug Allergy Active Medications Medication SIG (Take, Route, Frequency, Duration) Notes Start Date End Date Status Nystatin 867315 UNIT/GM APPLY TOPICALLY ONCE DAILY External; Duration: 30 Days Not-Taking Triamcinolone Acetonide 0.1 % External; Duration: 15 Days Not-Taking Folic Acid 1 MG TAKE 1 TABLET BY PHILIPPE TH EVERY DAY Oral; Duration: 90 Days Not-Taking amLODIPine Besylate 2.5 MG Oral; Duratio n: 90 Days Active Omeprazole 20 MG Oral; Duration: 90 Days Active Encounters Encounter Location Date Provider Diagnosis [facility] [address] [place] [address] 04/14/2024 Akanksha Sahu Plan Of Treatment No Information Progress Notes * Wendie RAJPUT RDOB: [birth year] (49 yo M)Acc No.[id number]:04/14/2024 Progress Note Patient: Wali CYNTHIAMINDI Wendie Duggan Provider: Wali Sahu DPM :1975 A ge:49 Y S ex:Male Date:04/14/2024 Address:[address], [place] Pcp:Frederick Casillas FITTER'S ASSISTANT-BC Subjective: * Chief Complaints: * * Medical History: C hicken pox, High Blood Pressure. * Medications: T aking amLODIPine Besylate 2.5 MG Tablet Oral , Taking Omeprazole 20 MG Capsule Delayed Release Oral , Not-Taking/PRN Triamcinolone Acetonide 0.1 % Cream External , Not-Taking/PRN Folic Acid 1 MG Tablet TAKE 1 TABLET BY MOUTH EVERY DAY Oral , Not-Taking/PRN Nystatin 910993 UNIT/GM Cream APPLY TOPICALLY ONCE DAILY External [...] 04/14/2024 Generated for Aliya melo/Adele/Sara on: 0 01/05/2025 02:53 PM EDT
--- OUTSIDE RECORDS SUMMARY | 2025-01-05 14:54 | XMS_ITS | Patient Health Record ---
Author Organization [facility] Address [address] [place] [address] Care Team Providers Care Program Manager Rn Name Role Phone Frederick Nicholas Primary Care Provider Maryuri Akanksha León Unavailable [phone] Allergies Allergen (clinical drug ingredient) Drug/Non Drug Allergy documented on EMR Reaction Allergy Type Onset Date Status ibuprofen Ibuprofen itching Drug Allergy Active Reason For Referral No Information Medications Medication SIG (Take, Route, Frequency, Duration) Notes Start Date End Date Status Nystatin 811409 UNIT/GM APPLY TOPICALLY ONCE DAILY External; Duration: [...] 01/12/2024 Encounters Encounter Location Date Provider Diagnosis [facility] [address] [place] [address] 01/12/2024 Akanksha Sahu Pain in left foot M79.672 ; Edema, lower extremity R60.0 ; Pain in right foot M79.671 ; Flat foot [pes planus] (acquired), right foot M21.41 and Flat foot [pes planus] (acquired), left foot M21.[address] [facility] [address] 01/12/2024 Akanksha Sahu [facility] [address] [address] 04/14/2024 Akanksha Sahu Assessments Encounter Date Diagnosis [...] Insured Coverage Start Date Coverage End Date [facility] All Others [address] [place] [address] [id number] [facility] Wendie Ulloa Self - patient is the insured Medical (General) History Medical History History ICD Code Chicken pox High Blood Pressure
[2025-01-05 16:26] LABS: Anion Gap 10 (12-20); Blood Urea Nitrogen 12 mg/dL (9-16); Calcium 9.3 mg/dL (8.4-10.2); Carbon Dioxide 27 mmol/L (22-29); Chloride 105 mmol/L (96-108); Estimated Glomerular Filt Rate > 60; Potassium 3.3 mmol/L (3.3-5.1); Sodium 139 mmol/L (135-145)
== END 2025-01-05 13:37 | disposition home or self-care (01) ==
LOC: HO.HMGCLDS 13:36
PROVIDERS: PCP Nurse Practitioner Family; Visit Provider Internal Medicine
DX: E87.6 Hypokalemia (principal)
CPT/HCPCS: 36415; 80048